=== PATIENT | male | born 1950 | race Caucasian/White ===

== ENCOUNTER → 2017-10-19 10:51 | Outpatient (CLI) | payer OTHER, SELFPAY ==
[2017-10-19 11:46] LABS: AST(SGOT) 19 U/L (15-37); Alanine Aminotransfer ALT/SGPT 19 U/L (16-61); Albumin, Serum 3.6 g/dL (3.2-5.0); Alkaline Phosphatase 58 U/L (45-117); Bilirubin, Direct 0.15 mg/dL (0.00-0.30); Cholesterol 126 mg/dL (200); Globulin 4.1 g/dL (2.2-4.2); High Density Lipoprotein 65 mg/dL; Protein, Total 7.7 g/dL (6.4-8.2); Triglycerides 42 mg/dL; Very Low Density Lipoprotein 8 mg/dL (5-40)
== END ==
PROVIDERS: Family Provider Family Medicine; PCP Family Medicine; Visit Provider Internal Medicine Cardiovascular Disease
DX: E78.5 Hyperlipidemia, unspecified (principal); Z79.899 Other long term (current) drug therapy
CPT/HCPCS: 36415; 80061; 80076

== ENCOUNTER 2018-01-25 07:03 | Day surgery (SDC) | payer OTHER, SELFPAY ==
[2018-01-25 07:20] VITALS: BP 133/80; PULSE 61; RESP 18; TEMP 36.6; O2SAT 97; BMI 31.0
[2018-01-25 08:30] VITALS: BP 103/77; BP 133/80; BP 83/41; PULSE 70; RESP 14; RESP 16; TEMP 36.6; O2SAT 95; O2SAT 96
--- NOTE | 2018-01-25 08:31 | OP.ENDO_ITS ---
Patient Name: Kalen Parham Procedure Date: 01/25/2018 7:55 AM Date of : 1950 Age: 67 Procedure: Colonoscopy Indications: Rectal bleeding Providers: Son Parson MD Requesting Provider: Patrick Posadas MD Medicines: See the Anesthesia note for documentation of the administered medications Patient Profile: Last Colonoscopy: more than 6 years ago. Complications: No immediate complications. Procedure: Pre-Anesthesia Assessment: - Prior to the procedure, a History and Physical was performed, and patient medications and allergies were reviewed. The patient's tolerance of previous anesthesia was also reviewed. The risks and benefits of the procedure and the sedation options and risks were discussed with the patient. All questions were answered, and informed consent was obtained. Prior Anticoagulants: The patient has taken aspirin, last dose was 7 days prior to procedure. ASA Grade Assessment: III - A patient with severe systemic disease. After reviewing the risks and benefits, the patient was deemed in satisfactory condition to undergo the procedure. After I obtained informed consent, the scope was passed under direct vision. Throughout the procedure, the patient's blood pressure, pulse, and oxygen saturations were monitored continuously. The colonoscope was introduced through the anus and advanced to the cecum, identified by appendiceal orifice and ileocecal valve. The colonoscopy was performed without difficulty. The patient tolerated the procedure well. The quality of the bowel preparation was good. Scope In: 8:07:01 AM Scope Withdrawal Time 0 hours 6 minutes 6 seconds Scope Out: 8:25:50 AM Total Procedure Duration Time 0 hours 18 minutes 49 seconds Findings: Hemorrhoids were found on perianal exam. Non-bleeding non-thrombosed non-prolapsed external and internal hemorrhoids were found during retroflexion. The hemorrhoids were moderate, medium-sized and Grade II (internal hemorrhoids that prolapse but reduce spontaneously). The exam was otherwise without abnormality. Impression: - Hemorrhoids found on perianal exam. - Non-bleeding non-thrombosed non-prolapsed external and internal hemorrhoids. - The examination was otherwise normal. - No specimens collected. Recommendation: - Discharge patient to home. - Resume previous diet. - Continue present medications. - Repeat colonoscopy in 10 years for screening purposes. - Return to my office in 1 week. Procedure Code(s): --- Professional --- 26703, Colonoscopy, flexible; diagnostic, including collection of specimen(s) by brushing or washing, when performed (separate procedure) Diagnosis Code(s): --- Professional --- K64.1, Second degree hemorrhoids K62.5, Hemorrhage of anus and rectum CPT copyright 2017 [employer]. All rights reserved. The codes documented in this report are preliminary and upon tuyere fitter review may be revised to meet current compliance requirements. MD Son Inman MD 01/25/2018 8:31:20 AM This report has been signed electronically. Number of Addenda: 0 Note Initiated On: 01/25/2018 7:55 AM
[2018-01-25 08:35] VITALS: BP 104/81; BP 133/80; PULSE 68; RESP 16; O2SAT 96
[2018-01-25 08:40] VITALS: BP 107/81; BP 133/80; PULSE 62; RESP 16; TEMP 36.7; O2SAT 97
--- NOTE | 2018-01-25 08:40 | EKG12_ITS ---
Test Reason : Blood Pressure : / mmHG Vent. Rate : 069 BPM Atrial Rate : 069 BPM P-R Int : 144 ms QRS Dur : 142 ms QT Int : 470 ms P-R-T Axes : 066 013 025 degrees QTc Int : 503 ms Normal sinus rhythm Right bundle branch block Abnormal ECG When compared with ECG of 07-MAY-2017 16:07, No significant change was found Confirmed by UMBERTO SINGER, ILA ([id number]), editor index MARY VILLA ([id number]) on 01/30/2018 3:52:13 PM Referred By: Son Parson Confirmed By:ILA SHIPMAN MD
[2018-01-25 08:56] VITALS: BP 133/80
== END 2018-01-25 09:10 | disposition home or self-care (01) ==
LOC: EN 07:03 → AC 07:04
PROVIDERS: Family Provider Family Medicine; PCP Family Medicine; Referring Provider Surgery; Visit Provider Surgery
PROC: 0DJD8ZZ Inspection of Lower Intestinal Tract, Via Natural or Artificial Opening Endoscopic (ICD-10-PCS; CPT 45378; principal; 2018-01-25 07:55)
DX: K62.5 Hemorrhage of anus and rectum (principal); K40.90 Unilateral inguinal hernia, without obstruction or gangrene, not specified as recurrent; K64.1 Second degree hemorrhoids; K64.4 Residual hemorrhoidal skin tags; Q21.1 Atrial septal defect; I34.0 Nonrheumatic mitral (valve) insufficiency; I45.10 Unspecified right bundle-branch block; E78.5 Hyperlipidemia, unspecified; J45.909 Unspecified asthma, uncomplicated; M19.90 Unspecified osteoarthritis, unspecified site; I25.2 Old myocardial infarction; Z79.82 Long term (current) use of aspirin; Z79.899 Other long term (current) drug therapy; Z87.891 Personal history of nicotine dependence
CPT/HCPCS: 45378; 93005; J7120

== ENCOUNTER 2019-03-29 05:34 | Day surgery (SDC) | payer OTHER, SELFPAY ==
--- NOTE | 2019-03-01 03:17 | HP_ITS ---
Intake Vital Signs 03/01/19 Body Mass Index (BMI) 32.8 03/01/19 Height 5 ft 8 in 03/01/19 Weight: 200 lb 03/01/19 Body Mass Index (BMI) 30.4 03/01/19 Blood Pressure 142/88 H 03/01/19 Blood Pressure Location Rt brachial 03/01/19 Blood Pressure Position Sitting 03/01/19 Respiratory Rate 18 03/01/19 Pulse Rate 66 03/01/19 Pulse Source Monitor 03/01/19 Temperature 98.5 F 03/01/19 Temperature Source Oral 03/01/19 Pulse Ox 96 03/01/19 Oxygen Delivery Method room air Intake Visit Reasons: Update H/P Bilateral Inguinal Hernia DP Chief Complaint: [facility] Student Support Services Director Required: No Is patient in pain?: No Allergies Penicillins Allergy (Severe, Verified 03/01/19 09:04) throat swelling omeprazole Adverse Reaction (Intermediate, Uncoded 01/23/18 11:32) unknown Medications aspirin 81 mg tablet,delayed release 81 mg PO QDAY 03/29/17 [History Confirmed 03/01/19] sildenafil 25 mg tablet 25 mg PO ONCE 01/10/18 [History Confirmed 03/01/19] atorvastatin 20 mg tablet 20 mg PO QDAY #90 tab 11/30/18 [Rx Confirmed 03/01/19] PFS Medical History Encounter for long-term (current) use of other medications (Chronic) Hyperlipidemia (Chronic) Bradycardia (Chronic) Right bundle branch block (Chronic) Nonrheumatic mitral valve regurgitation (Chronic) Patent foramen ovale (Chronic) Old myocardial infarction (Chronic ~2014) Atherosclerotic heart disease of [place] coronary artery without angina pectoris (Chronic) Hemorrhoid (Acute) Surgical History History of back surgery (Acute) History of bilateral carpal tunnel release (Acute) History of colonoscopy (Acute ~2017) History of ear surgery (Acute) History of left heart catheterization (LHC) (Chronic ~2014) Family History Father Colon cancer Mother Colon cancer CVA (cerebral vascular accident) Heart disease Social History (Updated 03/01/19 @ 15:17 by Jaci Sam, PA-C) Smoking Status: Former smoker how long ago did patient quit smokin HPI HPI HPI: AIXA LOPEZ is a 68 M who presents to the office today for HPI HPI Surgical H&P: Yes HPI: AIXA LOPEZ is a 68 M who presents to the office today for an update history and physical for bilateral inguinal hernias. Patient denies recent hospitalizations or illnesses. He has had previous myocardial infarction approximately 4 years ago. Patient is on aspirin. Dr. Vogt is his insurance risk manager. Patient denies previous stroke and blood clots. Patient does note that his heart rate slows down during each time he has had anesthesia. Patient denies nausea, vomiting. He denies change in bowel habits. Patient's previous history per Dr. Parson: AIXA LOPEZ is a 68 M who presents to the office today for Reevaluation for hernias. I last saw this patient back in 01/10/2018 this was for colonoscopy that I had done and he had a bulge in his left groin but he was not having any discomfort.He was supposed to come back so that we can get him scheduled for the laparoscopic left inguinal hernia but he forgot and was lost in follow-up but re-presents today after being seen by his primary care physician who now is identified that he has bilateral inguinal hernias. Once again the patient is not noticing any discomfort he has no change in his bowel or bladder habits. ROS General General: No weight change, appetite, fatigue, colon cancer, breast cancer or weakness HEENT HEENT: No difficulty swallowing, eye injury, eye surgery, swollen glands or hoarseness Endo Endocrine: No thyroid disease, diabetes mellitus, thyroid cancer, Hair loss, heat intolerance or cold intolerance Musc Musculoskeletal: Yes back problems and arthritis; no rheumatoid arthritis, gout or joint pain Cardio Cardiovascular: Yes heart attack; no murmur, pacemaker, heart disease, atrial fibrillation, high blood pressure, heart stent, palpitations, shortness of breat with exertion or chest pain Resp Respiratory: No shortness of breath, No sleep apnea, No cough, No COPD, No asthma, No emphysema, No wheezing Gastro Gastrointestinal: No abdominal pain, No nausea or vomiting, No diarrhea, No constipation, No blood in stool, No acid reflux, Yes hemorrhoids, No ulcers, No gallbladder problem, No black,tarry stools Neuro Neurologic: No weakness Exam Const General: cooperative, healthy appearing, comfortable, no acute distress HENME Head: normal to inspection Eyes General: appearance normal, both eyes and all related structures Neck Neck: normal visual inspection Neck mass: No Resp Effort & Inspection: normal respiratory effort Auscultation: clear to auscultation bilaterally Cardio Rate: regular rate Rhythm: regular rhythm Heart Sounds: no murmurs GI Inspection: normal to inspection Palpation: soft, hernia (bilateral inguinal) Auscultation: normal bowel sounds Skin General: no rashes or lesions noted Neuro General: no focal motor deficits, CN's II-XI intact bilaterally Extrem General: normal to inspection Psych Appearance: grossly normal Affect: normal affect Assessment & Plan Problems 1. Non-recurrent bilateral inguinal hernia without obstruction or gangrene K40.[address] Parson will plan to perform a laparoscopic robotic assisted bilateral inguinal hernia repair with mesh. Procedure details, risks and benefits have been reviewed. Patient has had the opportunity to ask and have questions answered. Patient verbally understands and agrees with plan. Patient will hold his aspirin 7 days prior to the procedure. Coding Level of Care Code No Charge Diagnoses Non-recurrent bilateral inguinal hernia without obstruction or gangrene K40.20 ??Obstruction and gangrene presence: without obstruction or gangrene ??Recurrence: non-recurrent Comment Update H&P 03/01/19 [id number] <Electronically signed by Jaci tierney PA-C> Date _ Jaci Sam PA-C I have re-examined the patient. There are no clinical changes since date of exam.
[2019-03-01 09:05] VITALS: BMI 32.8
[2019-03-29] VITALS (7 sets, daily range): BP systolic 122–133; BP diastolic 76–84; PULSE 50–66; RESP 16; TEMP 36–36.7; O2SAT 92–95; BMI 32.2
--- NOTE | 2019-03-29 05:46 | EKG12_ITS ---
Test Reason : PRE-OP Blood Pressure : / mmHG Vent. Rate : 062 BPM Atrial Rate : 062 BPM P-R Int : 144 ms QRS Dur : 140 ms QT Int : 456 ms P-R-T Axes : 055 015 024 degrees QTc Int : 462 ms Normal sinus rhythm Right bundle branch block Abnormal ECG When compared with ECG of 25-JAN-2018 08:37, No significant change was found Confirmed by DARRIUS SINGER, ANNETTE ([id number]), non linear editor MARY VILLA ([id number]) on 04/01/2019 10:36:31 AM Referred By: Son Parson Confirmed By:JOZEF RIZO MD
[2019-03-29] MEDS: Lactated Ringers 1,000 ML 100 ML IV ×3 (06:41→10:55)
--- NOTE | 2019-03-29 07:42 | DCINST_ITS ---
Discharge Diet: Light diet - advance as tolerated Discharge Activity: Return to Normal Activity, May Drive - when you are no longer taking narcotic pain medications., May Shower - with the bandage in place 1-2 days after surgery. Lifting Restrictions: 20 pounds for 8 weeks. Additional Activity Instructions:: Climbing stairs is fine, walking is encouraged. Sitting in bed may be uncomfortable. Sitting up using your lateral muscles (sitting up sideways) is usually more comfortable. Do not drive, work heavy equipment of sign legal documents for 24 hours. If your hernia repair was an ingunial repair, you may have scrotal swelling, an ice pack and/or athletic support can provide more comfort. Pain medications may cause nausea, you should typically eat light foods as you take your pain medications. Pain medications may also cause constipation. If you have difficulty with this, discuss with your doctor. Call your doctor if your incision/area has: Continuous Slow Oozing, Sudden Increased Bleeding, Increased Pain/ Swelling, Increased Redness, Foul Smelling Discharge Call your doctor if you observe: Fever of 101 or Higher Suture Line Care: Avoid Pulling/Pushing, Avoid Pinching/Bending Additional Dressing/Incision Instructions:: Leave the operative bandage on for 2-3 days. When you remove the bandage, leave the steri-strips on place until your follow up appointment or they fall off. Allergies/Adverse Reactions: Allergies Penicillins Allergy (Severe, Verified 03/14/19 14:42) throat swelling Medications to take at Discharge aspirin 81 mg tablet,delayed release 81 mg PO QDAY 03/29/17 atorvastatin 20 mg tablet 20 mg PO QDAY #90 tab 11/30/18 Oxycodone HCl/Acetaminophen [Percocet 5/325] 1 - 2 tablet PO Q4H PRN PRN 7 Days #30 tablet 03/29/19 The following prescriptions were given: Oxycodone HCl/Acetaminophen [Percocet 5/325] 1 - 2 tablet PO Q4H PRN PRN 7 Days #30 tablet PRN Reason: Pain Transmission Status: Sent to [facility] Primary Care Physician: Barry Posadas MD [Primary Care Provider] - Test Results: Test results from this visit will be discussed in further detail at your follow- up appointment, if applicable. Please Follow Up With: Son Parson MD - [phone] When: Plan to have a follow up appointment in 7 days. Call to schedule.
--- NOTE | 2019-03-29 07:42 | PCM.OPRPT ---
Problem List (1) Bilateral inguinal hernia Status: Acute Qualifiers: Obstruction and gangrene presence: without obstruction or gangrene Recurrence: non-recurrent Qualified Code(s): K40.20 - Bilateral inguinal hernia, without obstruction or gangrene, not specified as recurrent Report of Operation Date of Procedure: 03/29/19 Pre-Operative Diagnosis: Bilateral inguinal hernia Post-Operative Diagnosis: Same Surgery/Procedure Performed:: Laparoscopic bilateral inguinal hernia repair Type of Anesthesia:: General Anesthesiologist: Neel Rousseau Estimated Blood Loss (mL): < 25 cc Fluids Replaced: 1500 cc lr Description of Procedure: Patient was brought into the operating room. Placed in the supine position. Under excellent general trach intubation abdomen was sterilely prepped draped in usual fashion. Local was injected above the umbilicus incision was made dissection was carried down to the fascia the fascia grasped with Rina varies needle was placed inside the abdomen the abdomen was insufflated to 15 torr a 10/12 trocar was placed without difficulty it was flank by 2 #8 trochars placed under direct visualization. Patient was placed in the headdown position. The robot was brought in and docked appropriately. I started on the left side scoring the peritoneum dissecting down to Jacob's ligament dissecting laterally bringing back a indirect inguinal hernia dissecting the cord and vessel structures free. I then went to the right side in similar fashion scored the peritoneum dissected down to Jacob's ligament dissected laterally dissecting the cord and vessel structures free this time bringing a an indirect inguinal hernia in to the peritoneum. I fashioned a large 3D max mesh into the right side I tacked it to Jacob's ligament with a 2-0 Vicryl in similar fashion I placed a medium 3D max mesh on the left side and tacked it to Jacob's ligament with a 2-0 Vicryl. The mesh laid completely flat and looked excellent on both sides. We closed the peritoneum on the left and the right with a 3 OV lock suture burying the V lock into the ligaments fat. Robot was undocked to use a GraNee needle to close the umbilical port with 0 Vicryl. Local was injected skin incisions were closed with some particular stitches of 4-0 Monocryl. Steri-Strips were applied sterile dressings were applied and the patient tolerated the procedure well. - Admit VTE Documentation VTE Present on Admission: No VTE Mechan Device Prophylaxis: SCD's VTE Pharm Prophylaxis ordered?: No Reason prophylaxis not ordered:: Treatment Not Indicated
[2019-03-29] MEDS: Bupivacaine Mpf 0.5% 30 ML VIAL (09:17)
== END 2019-03-29 11:31 | disposition home or self-care (01) ==
LOC: SDC 05:36 → AC 05:36
PROVIDERS: Family Provider Family Medicine; PCP Family Medicine; Referring Provider Surgery; Visit Provider Surgery
PROC: (CPT 49650; principal; 2019-03-29 06:55)
DX: K40.20 Bilateral inguinal hernia, without obstruction or gangrene, not specified as recurrent (principal); I25.10 Atherosclerotic heart disease of native coronary artery without angina pectoris; I34.0 Nonrheumatic mitral (valve) insufficiency; I45.10 Unspecified right bundle-branch block; E78.5 Hyperlipidemia, unspecified; M19.90 Unspecified osteoarthritis, unspecified site; K21.9 Gastro-esophageal reflux disease without esophagitis; Z79.82 Long term (current) use of aspirin; Z79.899 Other long term (current) drug therapy; I25.2 Old myocardial infarction; Z88.0 Allergy status to penicillin; Z87.891 Personal history of nicotine dependence
CPT/HCPCS: 00840; 49650; S2900; 93005; J7120; C1781; J2405

== ENCOUNTER 2020-04-07 18:59 | Emergency (ER) | payer MEDICARE, OTHER, SELFPAY ==
[2019-04-03 07:13] VITALS: BMI 32.8
[2020-04-07 19:00] VITALS: BP 137/87; PULSE 57; RESP 16; TEMP 36.4; O2SAT 97; BMI 31.1
--- NOTE | 2020-04-07 19:07 | ED.RN ---
CALLED FOR EKG PER RN REQUEST, PULLED OLD EKGS FOR
--- NOTE | 2020-04-07 19:15 | EKG12_ITS ---
Test Reason : DIZZINES/SOB Blood Pressure : / mmHG Vent. Rate : 058 BPM Atrial Rate : 058 BPM P-R Int : 150 ms QRS Dur : 142 ms QT Int : 486 ms P-R-T Axes : 062 022 031 degrees QTc Int : 477 ms Sinus bradycardia Right bundle branch block Abnormal ECG Confirmed by DARRIUS SINGER, ANNETTE ([id number]), video tape editor MARY VILLA ([id number]) on 04/17/2020 12:33:37 PM Referred By: Barry Posadas Confirmed By:JOZEF RIZO MD
--- NOTE | 2020-04-07 19:29 | ED.VIS.GEN ---
History of Present Illness Chief Complaint: Dizziness Narrative: 70-year-old male presenting for evaluation of an episode of dizziness earlier today. He states that he has been dizzy like this in the past but does not have a formal diagnosis. He states he spoke with his who has vertigo and states that likely vertigo. This episode is resolved. Is not currently present. Patient also states that he has been short of breath at night and coughing with congestion and wheezing at night. This has been going on for 6 weeks. He is not had fever, chills. He does not have loss of taste or smell. He does not feel sick. Patient denies any sick contacts that he knows of. - Past Medical History (1) Hyperlipidemia Status: Chronic (2) History of non-ST elevation myocardial infarction (NSTEMI) Status: Resolved Past Medical History - Allergies and Home Meds Allergies/Adverse Reactions: Allergies Penicillins Allergy (Severe, Verified 04/07/20 19:03) throat swelling Primary Care Physician: Barry Posadas MD [Primary Care Provider] - Prior records reviewed: Yes Past Medical History: - - Reviewed in problem list Surgical History: noncontributory Lives: Spouse/ Significant Other Smoking Status: Former smoker Alcohol: None Drugs: None Review of Systems General: Denies: Chills, Fever, Sweats Eyes: Denies: Visual changes - bilaterally, Diplopia ENT: Denies: Rhinorrhea, Sore throat Cardiovascular: Denies: Chest pain, Palpitations Respiratory: Reports: Dyspnea, Cough. Denies: Dyspnea on exertion Gastrointestinal: Reports: Nausea, Vomiting. Denies: Abdominal pain, Diarrhea, Melena, Hematochezia Genitourinary: Denies: Dysuria, Hematuria, Frequency Musculoskeletal: Denies: Back pain, Extremity Pain Skin: Denies: Rash, Wounds Neurological: Reports: - - Vertiginous dizziness Psych: Denies: Depression, Anxiety Endocrine: Denies: Polyuria, Polydipsia Physical Exam Vital Signs/Narrative: Vital Signs Temp Pulse Resp BP Pulse Ox 04/07/20 19:00 97.6 F L 57 L 16 137/87 H 97 Inital Vital Signs reviewed: Yes General: Well nourished, No Acute Distress Head: Normocephalic, Atraumatic Eyes: Perrl, EOMI, - - No dizziness elicited on exam. No nystagmus. ENT: Moist mucous membranes, No rhinorrhea Neck: Supple, Nontender Cardiovascular: Regular rate, Regular rhythm Respiratory: No distress, CTA bilaterally Extremities: Nontender, No edema Skin: Normal color, No rash Neurological: Alert, Oriented x3 Psychological: Normal affect, Normal Mood Diagnostic/Tx/Re-eval Clinical Impression(s) from Imaging Studies Chest X-Ray 04/07/20 19:40 IMPRESSION: No definite acute or significant abnormality seen. Electronically Signed: Alfred Salinas MD at 20:09 EST , Service support , - Medical Decision Making 70-year-old male presenting with a cough which has had for 6 weeks without change. He states it is worse at night. He is not had fever, chills, myalgias, change in taste or smell. He states he has no exposure to Covid?19. Patient also states that he became dizzy today and it was vertiginous and was only for short time and he became nauseous and vomited. This is completely resolved. I cannot reproduce it on exam. He has no dizziness currently. His vital signs are stable and he is afebrile. He is not hypoxic, tachypneic. He is not having chest pain. I did check a chest x-ray which was negative for acute process as read by myself and the radiologist. I feel he is stable for discharge home and he does not need lab work or further imaging or treatment. I will give him meclizine for home. He is given return precautions. Impression: 1. Dizziness 2. Cough ED Disposition - Plan for ED Patient: Disposition: Home or Assisted Living Instructions: ED Cough Chronic Uncertain Cause Adult, ED Vertigo, Unspecified Prescriptions: Meclizine HCl 25 mg PO TID PRN PRN #30 tab.chew PRN Reason: Dizziness Transmission Status: Received by [facility] Referrals: Barry Posadas MD [Primary Care Provider] -
--- NOTE | 2020-04-07 19:40 | RAD_ITS ---
STUDY: X-RAY CHEST REASON FOR EXAM: Male, 70 years old. WHEEZING X SEVERAL WEEKS. STATES TODAY AROUND NOON HE BECAME DIZZY. STATES HE VOMITED ONCE SINCE THEN. TECHNIQUE: Single AP portable view of the chest. COMPARISON: 05/07/2017. FINDINGS: The lungs are clear and expanded. There is no demonstrated pleural abnormality. Normal size heart. Normal mediastinum and efrain. Normal visualized pulmonary arteries. Normal visualized aortic arch and descending thoracic aorta. There are diffuse degenerative changes of the visualized thoracic spine. Normal visualized ribs, clavicles, and shoulders. There is no demonstrated abnormality of the visualized soft tissue structures of the upper abdomen. RAD/Chest 1 View (Portable) IMPRESSION: No definite acute or significant abnormality seen. Electronically Signed: Alfred Salinas MD at 20:09 EST , Service support ,
[2020-04-07 20:43] VITALS: BP 128/81; PULSE 58; RESP 14; O2SAT 98
== END 2020-04-07 20:45 | disposition home or self-care (01) ==
PROVIDERS: Emergency Provider Student in an Organized Health Care Education/Training Program; PCP Family Medicine
DX: R42 Dizziness and giddiness (principal); R05 Cough; R06.2 Wheezing; R06.02 Shortness of breath; E78.5 Hyperlipidemia, unspecified; Z79.82 Long term (current) use of aspirin; Z79.899 Other long term (current) drug therapy; I25.2 Old myocardial infarction; Z87.891 Personal history of nicotine dependence
CPT/HCPCS: 71045; 93005; 99283

== ENCOUNTER → 2020-04-15 09:37 | Outpatient (CLI) | payer MEDICARE, OTHER, SELFPAY ==
[2020-04-07 19:00] VITALS: BMI 31.1
[2020-04-15 12:38] LABS: Vitamin B12 370 pg/mL (211-911); Vitamin D,25 Hydroxy 21.7 ng/mL
[2020-04-15 12:42] LABS: AST(SGOT) 13 U/L (15-37); Alanine Aminotransfer ALT/SGPT 26 U/L (16-61); Albumin, Serum 3.7 g/dL (3.2-5.0); Alkaline Phosphatase 66 U/L (45-117); Anion Gap 3 (5-15); BUN 14 mg/dL (7-18); BUN/Creat Ratio 15.2 RATIO (10-20); Calcium,Total 8.7 mg/dL (8.5-10.1); Chloride 108 mmol/L (98-107); Cholesterol 138 mg/dL (200); Creatinine, Serum 0.92 mg/dL (0.70-1.30); EST Glomerular Filtration Rate 87 mL/min (>60); Est Glom Filt Rate - Afr Amer 105 mL/min (>60); Globulin 3.7 g/dL (2.2-4.2); Glucose 83 mg/dL (74-106); High Density Lipoprotein 66 mg/dL; PSA,Total - Annual Screen 3.05 ng/mL (0.00-4.00); Protein, Total 7.4 g/dL (6.4-8.2); Sodium Level 140 mmol/L (136-145); Triglycerides 56 mg/dL; Very Low Density Lipoprotein 11 mg/dL (5-40)
== END ==
PROVIDERS: PCP Family Medicine; Referring Provider Family Medicine; Visit Provider Family Medicine
DX: I25.10 Atherosclerotic heart disease of native coronary artery without angina pectoris (principal); R53.83 Other fatigue; E55.9 Vitamin D deficiency, unspecified; Z12.5 Encounter for screening for malignant neoplasm of prostate
CPT/HCPCS: 36415; 80053; 80061; 82306; 82607; 84153; 84403; G0103

== ENCOUNTER 2020-06-11 15:23 | Observation (INO) | payer MEDICARE, OTHER, SELFPAY ==
--- NOTE | 2020-05-26 12:54 | HP.PCM_ITS ---
History and Physical History and Physical [facility] Patient Name: Kalen Parham : 1950 From: SHAKEEL GILMAN PA-C DATE OF SURGERY: 06/11/2020 SCHEDULED PROCEDURE: right total hip arthroplasty HISTORY OF PRESENT ILLNESS: Preoperative history and physical exam was performed on May 26, 2020. This is a 70-year-old male who has had ongoing pain for over 6 years with his right hip. Patient does report having scheduled for the same surgery [address] Chad Cheema but canceled this as he felt he was not ready for the surgery. Patient complains of pain with his right hip that can reach 7/10 with activities. Pain is been intermittent and aching. Pain is increased with walking and standing. He does have start up pain. Pain is located over the lateral hip, anterior thigh and right buttock. Patient has difficulty with putting on his socks and shoes and states he is no longer able to get his leg over the motorcycle to right. He has seen the pain gets progressively worse. He denies previous surgery on the right hip. He has tried home exercises, ice, heat minimal relief. After failing conservative measures and discussing patricia tment options with Dr. Zane Steele, the patient does wish to proceed with a right total hip arthroplasty. He does have medical history pertinent for previous heart attack in 2018 are 2019 as well as a heart catheterization. We are obtaining surgical clearance from the general repairer Dr. Vogt and primary care physician Dr. Giraldo. Patient does report 3 weeks ago going to the emergency room due to wheezing as they thought he was having another heart attack. This was ruled out and patient was treated by the primary care physician with an inhaler for his wheezing. He states this was very helpful. Currently denies any chest pain or shortness of breath. REVIEW OF SYSTEMS: ROS: Const: Denies anorexia, change in appetite, fever, hard of hearing, vision problems and weight change. CV: Denies chest pain, heart murmur, irregular heartbeat and peripheral vascular disease. Resp: Denies asthma, cough, pneumonia, sleep apnea, SOB, tuberculosis and wheezing. GI: Denies constipation, diarrhea, difficulty swallowing, heartburn, nausea, bloody stools and vomiting. : Urinary: denies incontinence. Musculo: Denies leg swelling, limp, trouble walking and weakness. Skin: Denies Raynaud's, history of shingles and tattoo. Neuro: Reports numbness/tingling but denies ambulatory dysfunction, dizziness and tremor. Psych: Denies anxiety, depression, insomnia, mental illness and stress. Jeremias/Lymph: Denies anemia, bleeding/bruising tendency and past transfusion. Reviewed, no changes. PAST MEDICAL HISTORY: Advance Care Plan: No Advance Directives Effective Date: 05/22/2020 PMH: Medical Problems: Heart Attack, Arthritis, Hypercholesterolemia Accidents: Fracture - 6 BROKEN FINGERS TWO FROM FARMING OTHER SPORTS AND PLAY A CHILD Sports Related Injury - CRACKED RIBS A TEEN Broken Back - A CHILD Surgical Hx: RT CTR - (03/16/2011) [email or web address] Laminectomy - (07/05/2013) [email or web address] LT CTR - (06/19/2015) VÍCTOR @ [facility] Back Surgery - (2013) Hernia Repair - (2018) DOUBLE Anesthesia Complications: Anesthesia Complications - HEART RATE SLOWS DOWN Assistive Devices: Glasses Reviewed and updated. SOCIAL HISTORY: SH: Marital: .Occupation: [employer].Work Status: Currently Working.Hand Dominance: Right-handed. Personal Habits: Tobacco Use: Patient is a former smoker.Cigarette Use: Former.Alcohol: Occasionally.Drug Use: Denies Use.Enjoy Exercising: Daily. Reviewed, no changes. VITALS: Ht: 68 Wt: 222lb Wt k.699 BMI: 33.8 BP: 138/76 Pulse: 76 Resp: 14 T: 96.4 T: 35.8C Pain Level: 1 ALLERGIES: Penicillin - Swellling MEDICATIONS: Atorvastatin Calcium 20 mg 1 po qd, Dulera 100-5 mcg/Act 2 puffs by mouth once daily, Vitamin D (Cholecalciferol) 50 mcg (1999 Ut) 1 po qd, Aspirin 81 81 mg 1 pill 2x/day by mouth PRE-OP EXAM: General appearance:NORMAL Other: Eyes: Conjunctivae and lids: NORMAL Pupils: ERR Ears, Nose, Mouth, and Throat: NORMAL Other: Inspection of lips, teeth and gums: NORMAL Other: Neck: Examination of neck: no masses noted. Respiratory: Assessment of respiratory effort: NORMAL Other: Auscultation of lungs: clear to auscultation no wheezes, rhonchi or rales. Cardiovascular: Auscultation of heart: regular rate and rhythm, no murmurs, gallops or rubs. Exam of carotid arteries: NORMAL Other: Gastrointestinal: Exam of abdomen: soft, nontender, nondistended bowel sounds present. PHYSICAL EXAMINATION: Patient does walks an antalgic gait. Right hip is cool to touch. No tenderness over the greater trochanteric region. Range of motion: Right hip flexion 80, internal rotation to neutral, external rotation 20. Sensation intact to light touch. Neurovascularly intact. IMAGING STUDIES: Previous x-rays of the right hip reveal joint space narrowing with subchondral sclerosis, osteophyte formation, subchondral cyst formation consistent with severe stage IV right hip osteoarthritis IMPRESSION: 1. Severe right hip osteoarthritis 2. History of heart catheterization and heart attack 3 years ago 3. Hypercholesterolemia PLAN: Dr. Zane Steele did discuss and review with the patient all treatment options including surgical versus nonsurgical options. Patient does wish to proceed with the above-stated procedure. Potential risks, benefits, and complications of the procedure were discussed in detail including but not limited to , infection, nerve and blood vessel damage, persistent pain, numbness, tingling, paresthesias, blood clot, pulmonary embolism, and requirement for possible further surgery. The patient expressed full understanding and has no further questions for the doctor. Patient does agree to proceed with the above-stated procedure and has signed the surgery consent form. We discussed the current risks associated with COVID 19. This does include the risk of exposure while in the hospital. Patient was reassured local hospitals have low infection rates and are taking all necessary precautions to avoid exposure to patients. In addition, we discussed strategies that can be used to help limit exposure including those that limit the patient's time in the hospital. Also using strategies to limit the patient's need for continued inpatient services after being discharged from the hospital. Patient was notified that we will need to comply with any screening or testing the hospital wishes to perform or that surgery may be delayed for any positive results. This dictation was created using voice recognition software. Phonetic and/or grammatical errors may exist. ___ I have re-examined the patient. There are no clinical changes since date of exam. ___ See progress notes for changes. ___ Dictated on admission Date: Time: Signature:
[2020-05-29 10:39] LABS: Absolute Lymphocyte Count 1.72 X10^3/uL (0.83-4.51); Absolute Neutrophil Count 3.3 X10^3/uL (2.0-7.7); Basophil# 0.08 X10^3/uL; Basophil% 1.3 % (0-1); Eosinophil# 0.38 X10^3/uL; Eosinophils% 6.2 % (0-5); Hematocrit 45.9 % (40-54); Hemoglobin 15.7 g/dL (13.0-16.5); Lymphocyte # 1.72 X10^3/ul (4.0); Mean Corp Hgb Conc 34.2 g/dL (32-36); Mean Corpuscular Hgb 31.2 pg (27.0-32.0); Mean Corpuscular Volume 91.1 fL (80-94); Mean Platelet Vol. 10.2 fl (6.2-12.0); Monocyte# 0.65 X10^3/uL; Monocyte% 10.6 % (0-10); NRBC Flagged by Analyzer 0 % (0-5); Neutrophil # 3.29 X10^3/uL (2.7-7.7); Neutrophil % 53.6 % (47-70); Platelet Count 266 K/mm3 (150-450); RBC Distribution Width CV 13.2 % (11.6-14.6); Red Blood Count 5.04 M/mm3 (4.6-6.2); White Blood Count 6.1 K/mm3 (4.4-11.0)
[2020-05-29 11:10] LABS: Anion Gap 5 (5-15); BUN 20 mg/dL (7-18); Chloride 110 mmol/L (98-107); Creatinine, Serum 0.95 mg/dL (0.70-1.30); EST Glomerular Filtration Rate 83 mL/min (>60); Est Glom Filt Rate - Afr Amer 101 mL/min (>60); Glucose 85 mg/dL (74-106); Potassium 4.4 mmol/L (3.5-5.1); Sodium Level 140 mmol/L (136-145)
[2020-05-30 07:00] VITALS: BMI 34.0
[2020-05-30 14:00] LABS: Magnesium 2.4 mg/dL (1.6-2.6)
[2020-06-11] VITALS (14 sets, daily range): BP systolic 106–127; BP diastolic 64–91; PULSE 53–84; RESP 16–18; TEMP 35.7–36.8; O2SAT 93–100; BMI 34.2
[2020-06-11] MEDS: Gabapentin 600 MG Tablet PO (08:34)
[2020-06-11] MEDS: Acetaminophen 500 MG Tablet 1000 MG PO ×2 (08:34→18:31)
[2020-06-11] MEDS: Lactated Ringers 1,000 ML 999 ML IV ×2 (08:34→12:37)
[2020-06-11 08:45] LABS: Bedside Glucose 93 mg/dL (70-110)
[2020-06-11] MEDS: Lactated Ringers 1,000 ML 75 ML IV (08:53)
[2020-06-11] MEDS: Lactated Ringers 1,000 ML 125 ML IV (09:50)
--- NOTE | 2020-06-11 11:20 | RAD_ITS ---
STUDY: X-RAY - PELVIS AND RIGHT HIP REASON FOR EXAM: Male, 70 years old. Intra-operative right hip TECHNIQUE: 1 views of the pelvis and hip. COMPARISON: None. FINDINGS: Intraoperative imaging provided for right total hip replacement. RAD/Hip 1 view with Pelvis IMPRESSION: Intraoperative imaging provided for right total hip replacement. Electronically Signed: Andi Gaitan MD at 15:45 EST , Service support ,
--- NOTE | 2020-06-11 11:44 | PCM.OPRPT ---
Report of Operation Date of Procedure: 06/11/20 Pre-Operative Diagnosis: Right hip primary osteoarthritis Post-Operative Diagnosis: Right hip primary osteoarthritis Surgery/Procedure Performed:: Right direct anterior total hip replacement, minimally invasive Description of Surgical Findings:: Stable hip with equal leg lengths tunnel form placing supervisor: KRISHNA - Mallika Khoury Type of Anesthesia:: Spinal Anesthesiologist: Neel Rousseau Special Medications: Vancomycin and clindamycin, 1 g TXA at incision, 1 g TXA closure, 10 mg Decadron, joint cocktail (5 mg Duramorph, 30 mL of 0.5% Ropivicaine, 1000 units of epinephrine, 30 mg of Toradol) Specimen's removed: Bony cuts Estimated Blood Loss (mL): 200 Fluids Replaced: 1000 mL crystalloid Description of Procedure: Components used: 1. Accolade 2 [place] femoral stem size 5 127? 2. Alfredito trident 2 acetabular shell size 56 mm 3. Alfred[place] X3 polyethylene F 4. [place] Biolox delta 36mm, -5mm femoral head Brief history operative indications: 70 yo M who failed conservative measures for their hip osteoarthritis. X-rays were consistent with osteoarthritis including joint space narrowing, osteophyte formation and subchondral cysts. Total hip replacement was discussed with the patient with risks and benefits including but not limited to blood loss, DVTs, PEs, neurovascular damage, dislocation, general risks of anesthesia including loss of life. Patient demonstrated an understanding medical clearance is obtained the patient was consented for surgery. Procedure: On the date of procedure the patient's R hip was marked in the preoperative area. Patient was then taken back to the operating room where anesthesia assumed control of the C-spine and airway and administered anesthetic. Patient was transferred to the operating table and placed in the supine position. The hips were placed at the break of the bed and a sacral bump was placed. The R lower extremity was then prepped out in a sterile fashion using chlorhexidine while the surgeon scrubbed. The PA was vital in the positioning of the patient. Upon reentering the room the R lower extremity was draped in the standard orthopedic fashion and the incision was marked. A timeout was called and everyone agreed upon the side, the site, the procedure be performed, antibody given, and patient's identity. At this time incision was made through skin, subcutaneous tissue, and fat down to fascia. The fascia was then incised and the TFL was retracted laterally. A retractor was placed on the lateral border of the femoral neck. Attention was directed to the inferior portion of the approach and all crossing vessels were identified and appropriately coagulated. A retractor was then placed on the medial portion of the femoral neck. The anterior capsule was then cleared of all soft tissue and then H shaped capsulotomy was made. The retractors were then placed inside the capsule. The femoral neck was identified and a cleanup cut was made. At this time a power corkscrew was used to remove the femoral head. Attention was then turned toward the acetabulum where the soft tissues were appropriately retracted and the acetabulum was sequentially reamed to 56 mm. A 56 mm cup was then selected and impacted into place. Acetabular liner was impacted into place and locking mechanism was verified. The position of the acetabular cup was then verified under live fluoroscopy. Attention was then turned to the femur. Soft tissue releases on the medial and lateral femoral neck were appropriately done, the leg was externally rotated and lateralized. A Swain retractor was placed medially and proximally to the greater trochanter this allowed appropriate visualization and exposure of the femoral canal. Rongeour was then used to remove excess lateral bone. A canal finder and entry broach were used to open the proximal canal. Once we verified we were down the femoral canal we subsequently broached up to a size 5 femur. The appropriate neck was placed in the previously selected head was trialed with a -5 mm neck. Traction was pulled and the hip was reduced with internal rotation. Once it was appropriately reduced and stability was checked. There was minimal shuck, equal leg lengths and appropriate stability with hyperextension and external rotation as well as with 90? flexion and internal rotation. Fluoroscopy was then also used to verify the position of the components and leg lengths using the contralateral side for comparison. The trial components were then dislocated the proximal femur was again exposed and the components were removed from the wound. The final components were verified and opened. The wound was copiously irrigated out with normal saline. The acetabulum was checked for any residual debris. The final components were placed and impacted. Traction and internal rotation were again used to reduce the hip. After adequate reduction the hip remained stable with appropriate leg lengths. The final components were once again checked with live fluoroscopy and were found to be satisfactory. The wound was then copiously irrigated with normal saline once more, and hemostasis was obtained. Closure was then done using #1 Vicryl runner to close the fascia. A 2-0 vicryl interuppted sutures were used to close the subcutaneous skin. A 3-0 Monocryl and Steri-Strips were used for final skin closure. A Silverlon dressing was placed. Patient was awakened by anesthesia and transferred to the [facility]. Patient was then transferred to the PACU for recovery. Postoperative plan: Patient will get 24 hours postop antibiotics. Patient will get in-house physical therapy and will be weight-bear as tolerated. Patient will follow up in office in 2 weeks for a wound check and x-rays. Aspirin 81 mg twice daily. - Complications No intraoperative complications - Admit VTE Documentation VTE Present on Admission: No VTE Mechan Device Prophylaxis: SCD's, Thigh High MARIE Hose VTE Pharm Prophylaxis ordered?: Yes
--- NOTE | 2020-06-11 17:05 | RAD_ITS ---
STUDY: X-RAY - PELVIS AND RIGHT HIP REASON FOR EXAM: Male, 70 years old. Postop. TECHNIQUE: 2 views of the pelvis and hip. COMPARISON: None. FINDINGS: There is a non-specific bowel gas pattern. Normal visualized soft tissue structures. Normal bilateral iliac wings, sacroiliac joints and visualized sacrum. Normal bilateral superior and inferior pubic rami. Normal pubic symphysis. Normal bilateral ischial tuberosities. There are degenerative changes of the left hip. Right total hip arthroplasty. The prosthetic components are intact and articulate normally with each other. No fracture or loosening from the underlying bone. RAD/Hip Min 2 Views (Portable) IMPRESSION: Status post right hip replacement. Electronically Signed: Ravi Ulrich DO at 19:31 EST Tel [phone], Service support ,
--- NOTE | 2020-06-11 17:22 | PCM.PROGNOTE ---
<Ewa Ortiz PAINT MIXER MACHINE - Last Filed: 06/11/20 17:29> Subjective: Patient seen and examined. Underwent right total hip replacement by Dr. Steele. Denies current symptoms or complaints. Pain well controlled. - Physical Exam Vitals/I&O's: Vital Signs Temp Pulse Resp BP Pulse Ox 97.5 F L 63 18 121/91 H 93 06/11/20 16:12 06/11/20 16:12 06/11/20 16:12 06/11/20 16:12 06/11/20 16:12 Oxygen Flow Rate (L/min) 6 Oxygen Delivery Method Room Air Weight: 225 lb 1.471 oz Body Mass Index (BMI) 34.2 Intake and Output for Last 24 Hours 06/09/20 06/10/20 06/11/20 23:59 23:59 23:59 Intake Total 4862 / 4862 Balance 4862 / 4862 General: Alert, Oriented x3, Cooperative HEENT: Atraumatic, PERRLA, EOMI, Normocephalic Neck: Supple, No JVD, Negative Carotid Bruits Lungs: Clear to auscultation, Normal air movement Cardiovascular: Regular rate, No murmurs Abdomen: Bowel Sounds Present, Soft, Non Tender Extremities: No clubbing, No cyanosis, No edema, Capillary Refill Less than 3 Seconds Skin: No rashes, No breakdown, - - Right hip post op dressing intact Musculoskeletal: No Tenderness to Palpation of Joints or Extremities Neurological: Cranial nerves II-XII grossly intact, Neuro grossly intact Psych/Mental Status: Normal Affect, Appropriate Microbiology Past 72 Hours 06/10/20 12:21 Interface Orders SARS-CoV-2 Antigen (Rapid) - Final Laboratory Results 06/11/20 08:34: POC Glucose 93 Current Medications Acetaminophen (Acetaminophen 500 Mg Tablet) 1,000 mg PO Q8H [facility] Aspirin (Aspirin 81 Mg Tab.Chew) 81 mg PO BIDCM [facility] Enteral Nutritional Formula (Ensure Surgery 237 Ml Liquid) 237 ml PO TIDCM [facility] Famotidine (Famotidine 20 Mg Tablet) 20 mg PO DAILY [facility] Lactated Ringer's () 1,000 mls @ 125 mls/hr IV .Q8H [facility] Stop: 06/11/20 17:49 Last Infusion: 06/11/20 17:18 Dose: Infused Documented by: Lactated Ringer's () 1,000 mls @ 75 mls/hr IV .[id number] [facility] Stop: 06/11/20 23:09 Last Infusion: 06/11/20 17:17 Dose: Infused Documented by: Lactated Ringer's () 1,000 mls @ 125 mls/hr IV .Q8H [facility] Clindamycin Phosphate 600 mg/ (Dextrose) 54 mls @ 100 mls/hr IV Q6H [facility] Stop: 06/12/20 06:33 Insulin Human Lispro (Insulin Lispro 100 Unit/Ml Insuln.Pen) 1 - 6 unit SC Q4H PRN PRN; Protocol PRN Reason: BG>/= 180, SEE PROTOCOL Ketorolac Tromethamine (Ketorolac 15 Mg/Ml Vial) 15 mg IV Q6H PRN PRN PRN Reason: Pain Score 1-5 Meloxicam (Meloxicam 7.5 Mg Tablet) 7.5 mg PO BID [facility] Morphine Sulfate (Morphine 2 Mg/Ml Syringe) 2 - 4 mg IV Q2H PRN PRN PRN Reason: Pain Score 4-10 Morphine Sulfate (Morphine 4 Mg/Ml Syringe) 2 - 4 mg IV Q2H PRN PRN PRN Reason: Pain Score 4-10 Ondansetron HCl (Ondansetron 4 Mg/2 Ml Vial) 4 mg IV Q8H PRN PRN PRN Reason: NAUSEA Oxycodone HCl (Oxycodone 5 Mg Tablet) 5 - 10 mg PO Q4H PRN PRN PRN Reason: Pain Score 4-10 Promethazine HCl (Promethazine 25 Mg/Ml Syringe) 12.5 mg IM Q6H PRN PRN; Protocol PRN Reason: NAUSEA/VOMITING Senna/Docusate Sodium (Senna/Docusate Sodium 1 Tablet) 2 tablet PO BID [facility] Sodium Chloride (0.9% Saline Lock 10 Ml Syringe) 10 - 40 ml IV UD PRN PRN Reason: SALINE FLUSH Medical Necessity - Tobacco Use Smoking Status: Former smoker Assessment/Plan All Active Problems (Last Reviewed 05/30/20 @ 09:[address] Dave Vogt MD) Encounter for pre-operative cardiovascular clearance (Acute) History of non-ST elevation myocardial infarction (NSTEMI) (Resolved 11/18/15) Nonrheumatic mitral valve regurgitation (Ruled-out) 1. CAD-stable. Heart cath in 2016 demonstrated minimal coronary artery disease. Continue statin. 2. Hyperlipidemia-continue statin. 3. Right hip osteoarthritis status post right total hip replacement 06/11/[address] Steele. Management per Ortho. DVT prophylaxis-aspirin 81 mg twice daily per Ortho. This patient was seen by LOI Bass under the supervision of Dr. Banerjee. <Mark Banerjee F - Last Filed: 06/11/20 18:34> - Physical Exam Vitals/I&O's: Vital Signs Temp Pulse Resp BP Pulse Ox 98.2 F 84 18 126/64 H 94 06/11/20 18:12 06/11/20 18:12 06/11/20 18:12 06/11/20 18:12 06/11/20 18:12 Oxygen Flow Rate (L/min) 6 Oxygen Delivery Method Room Air Weight: 225 lb 1.471 oz Body Mass Index (BMI) 34.2 Intake and Output for Last 24 Hours 06/09/20 06/10/20 06/11/20 23:59 23:59 23:59 Intake Total 5412 / 5412 Balance 5412 / 5412 Microbiology Past 72 Hours 06/10/20 12:21 Interface Orders SARS-CoV-2 Antigen (Rapid) - Final Laboratory Results 06/11/20 08:34: POC Glucose 93 Current Medications Acetaminophen (Acetaminophen 500 Mg Tablet) 1,000 mg PO Q8H [facility] Aspirin (Aspirin 81 Mg Tab.Chew) 81 mg PO BIDCM [facility] Enteral Nutritional Formula (Ensure Surgery 237 Ml Liquid) 237 ml PO TIDCM [facility] Famotidine (Famotidine 20 Mg Tablet) 20 mg PO DAILY [facility] Lactated Ringer's () 1,000 mls @ 75 mls/hr IV .[id number] [facility] Stop: 06/11/20 23:09 Last Infusion: 06/11/20 17:17 Dose: Infused Documented by: Lactated Ringer's () 1,000 mls @ 125 mls/hr IV .Q8H [facility] Clindamycin Phosphate 600 mg/ (Dextrose) 54 mls @ 100 mls/hr IV Q6H [facility] Stop: 06/12/20 06:33 Insulin Human Lispro (Insulin Lispro 100 Unit/Ml Insuln.Pen) 1 - 6 unit SC Q4H PRN PRN; Protocol PRN Reason: BG>/= 180, SEE PROTOCOL Ketorolac Tromethamine (Ketorolac 15 Mg/Ml Vial) 15 mg IV Q6H PRN PRN PRN Reason: Pain Score 1-5 Meloxicam (Meloxicam 7.5 Mg Tablet) 7.5 mg PO BID [facility] Morphine Sulfate (Morphine 2 Mg/Ml Syringe) 2 - 4 mg IV Q2H PRN PRN PRN Reason: Pain Score 4-10 Morphine Sulfate (Morphine 4 Mg/Ml Syringe) 2 - 4 mg IV Q2H PRN PRN PRN Reason: Pain Score 4-10 Ondansetron HCl (Ondansetron 4 Mg/2 Ml Vial) 4 mg IV Q8H PRN PRN PRN Reason: NAUSEA Oxycodone HCl (Oxycodone 5 Mg Tablet) 5 - 10 mg PO Q4H PRN PRN PRN Reason: Pain Score 4-10 Promethazine HCl (Promethazine 25 Mg/Ml Syringe) 12.5 mg IM Q6H PRN PRN; Protocol PRN Reason: NAUSEA/VOMITING Senna/Docusate Sodium (Senna/Docusate Sodium 1 Tablet) 2 tablet PO BID [facility] Sodium Chloride (0.9% Saline Lock 10 Ml Syringe) 10 - 40 ml IV UD PRN PRN Reason: SALINE FLUSH Addendum: Dr. Banerjee I personally examined the patient and reviewed the chart. I agree with the above. 70-year-old male presenting to the hospital for an elective right total hip replacement. He is doing well after surgery, denies any significant pain able to feel sensation in his feet and wiggle his toes. Does not take many medications, would continue all of his home medications. Plan will be for possible discharge in the morning. OBSV E&M: 81231 Subsequent observation care L3
[2020-06-11] MEDS: Aspirin 81 MG TAB.CHEW PO (18:32)
[2020-06-11] MEDS: Ensure Surgery 237 ML LIQUID PO (18:36)
[2020-06-11] MEDS: Senna/Docusate Sodium 1 Tablet 2 TABLET PO (20:24)
[2020-06-12] MEDS: Acetaminophen 500 MG Tablet 1000 MG PO ×2 (00:37→09:51)
[2020-06-12 00:40] VITALS: BP 130/106; PULSE 71; RESP 16; TEMP 36.5; O2SAT 94
[2020-06-12 05:04] VITALS: BP 98/61; PULSE 62; RESP 18; TEMP 36.8; O2SAT 93
[2020-06-12 06:52] LABS: Hematocrit 37.1 % (40-54); Hemoglobin 12.2 g/dL (13.0-16.5); Mean Corp Hgb Conc 32.9 g/dL (32-36); Mean Corpuscular Volume 91.2 fL (80-94); Mean Platelet Vol. 9.7 fl (6.2-12.0); Platelet Count 257 K/mm3 (150-450); RBC Distribution Width CV 13.3 % (11.6-14.6); RBC Distribution Width SD 44.7 fl (35.1-43.9); Red Blood Count 4.07 M/mm3 (4.6-6.2); White Blood Count 15.7 K/mm3 (4.4-11.0)
[2020-06-12 07:18] LABS: Anion Gap 7 (5-15); BUN 18 mg/dL (7-18); Calcium,Total 8.6 mg/dL (8.5-10.1); Chloride 107 mmol/L (98-107); EST Glomerular Filtration Rate 89 mL/min (>60); Est Glom Filt Rate - Afr Amer 108 mL/min (>60); Estimated Creatinine Clearance 74.94 ml/min; Glucose 122 mg/dL (74-106); Potassium 4.3 mmol/L (3.5-5.1); Sodium Level 139 mmol/L (136-145)
[2020-06-12 08:00] VITALS: PULSE 70
[2020-06-12 08:30] VITALS: BP 117/30; PULSE 78; RESP 16; TEMP 36.6; O2SAT 95
--- NOTE | 2020-06-12 09:03 | PCM.PROGNOTE ---
Subjective: Chief complaint: Follow-up after consultation for postoperative medical management. Patient seen and examined. No acute events overnight. Right hip pain is well controlled, he does have some pain upon ambulation. He is feeling great. No other complaints. His vital signs are stable. - Physical Exam Vitals/I&O's: Vital Signs Temp Pulse Resp BP Pulse Ox 97.9 F 78 16 117/30 L 95 06/12/20 08:30 06/12/20 08:30 06/12/20 08:30 06/12/20 08:30 06/12/20 08:30 Oxygen Flow Rate (L/min) 6 Oxygen Delivery Method Room Air Weight: 225 lb 1.471 oz Body Mass Index (BMI) 34.2 Intake and Output for Last 24 Hours 06/10/20 06/11/20 06/12/20 23:59 23:59 23:59 Intake Total 5466 / 5816 808 / 808 Balance 5466 / 5816 808 / 808 General: Alert, Oriented x3, Cooperative, No apparent distress HEENT: Atraumatic, PERRLA, EOMI, Normocephalic Oral: Moist Mucosa, No Gingival or Mucosal Lesions/ Ulcerations Neck: Supple, No JVD, Negative Carotid Bruits, Trachea Midline, Thyroid Normal Size and Texture Lungs: Clear to auscultation, Normal air movement, No rhonchi, No wheeze, No rales Cardiovascular: Regular rate, Regular Rhythm, Normal S1, Normal S2, PMI Normal Abdomen: Bowel Sounds Present, Soft, Non Tender, Non-Distended, No Hepato-splenomegaly Extremities: No clubbing, No cyanosis, No edema Skin: No rashes, No breakdown Lymphatic: No Cervical, Supraclavicular, or Inguinal Adenopathy Neurological: Cranial nerves II-XII grossly intact, Motor Exam 5/5 strength throughout Psych/Mental Status: Normal Affect, Appropriate, Alert and oriented to time, place, person, mood and affect Microbiology Past 72 Hours 06/10/20 12:21 Interface Orders SARS-CoV-2 Antigen (Rapid) - Final Laboratory Results 06/12/20 06:30: WBC 15.7 H, RBC 4.07 L, Hgb 12.2 L, Hct 37.1 L, MCV 91.2, MCH 30.0, MCHC 32.9, RDW Std Deviation 44.7 H, RDW Coeff of Isacc 13.3, Plt Count 257, MPV 9.7 06/12/20 06:30: Sodium 139, Potassium 4.3, Chloride 107, Carbon Dioxide 25.0, Anion Gap 7, BUN 18, Creatinine 0.90, Estim Creat Clear Calc 74.94, Est GFR (MDRD) Af Amer 108, Est GFR (MDRD) Non-Af 89, BUN/Creatinine Ratio 20.0, Glucose 122 H, Calcium 8.6 Current Medications Acetaminophen (Acetaminophen 500 Mg Tablet) 1,000 mg PO Q8H [facility] Last Admin: 06/12/20 00:37 Dose: 1,000 mg Documented by: Aspirin (Aspirin 81 Mg Tab.Chew) 81 mg PO BIDCM [facility] Last Admin: 06/11/20 18:32 Dose: 81 mg Documented by: Enteral Nutritional Formula (Ensure Surgery 237 Ml Liquid) 237 ml PO TIDCM [facility] Last Admin: 06/11/20 18:36 Dose: 237 ml Documented by: Famotidine (Famotidine 20 Mg Tablet) 20 mg PO DAILY [facility] Insulin Human Lispro (Insulin Lispro 100 Unit/Ml Insuln.Pen) 1 - 6 unit SC Q4H PRN PRN; Protocol PRN Reason: BG>/= 180, SEE PROTOCOL Ketorolac Tromethamine (Ketorolac 15 Mg/Ml Vial) 15 mg IV Q6H PRN PRN PRN Reason: Pain Score 1-5 Meloxicam (Meloxicam 7.5 Mg Tablet) 7.5 mg PO BID [facility] Morphine Sulfate (Morphine 2 Mg/Ml Syringe) 2 - 4 mg IV Q2H PRN PRN PRN Reason: Pain Score 4-10 Morphine Sulfate (Morphine 4 Mg/Ml Syringe) 2 - 4 mg IV Q2H PRN PRN PRN Reason: Pain Score 4-10 Ondansetron HCl (Ondansetron 4 Mg/2 Ml Vial) 4 mg IV Q8H PRN PRN PRN Reason: NAUSEA Oxycodone HCl (Oxycodone 5 Mg Tablet) 5 - 10 mg PO Q4H PRN PRN PRN Reason: Pain Score 4-10 Promethazine HCl (Promethazine 25 Mg/Ml Syringe) 12.5 mg IM Q6H PRN PRN; Protocol PRN Reason: NAUSEA/VOMITING Senna/Docusate Sodium (Senna/Docusate Sodium 1 Tablet) 2 tablet PO BID [facility] Last Admin: 06/11/20 20:24 Dose: 2 tablet Documented by: Sodium Chloride (0.9% Saline Lock 10 Ml Syringe) 10 - 40 ml IV UD PRN PRN Reason: SALINE FLUSH Medical Necessity - Tobacco Use Smoking Status: Former smoker Assessment/Plan This is a 70 years old male patient admitted for elective right hip total replacement for right hip osteoarthritis and I am seeing this patient for follow-up after consultation for postoperative medical management. #1 status post right hip direct anterior total replacement: Postoperative day 1. Pain is well controlled, patient has been ambulating. Vital signs are stable. Repeat routine blood work was remarkable for mild leukocytosis which is likely reactive, otherwise unremarkable. Patient has been afebrile. Orthopedic surgery on the case. #2 coronary artery disease: Without history of prior interventions. Stable, continue aspirin and statins. #3 hyperlipidemia: Continue statins. #4 GERD: Continue Pepcid. #5 DVT prophylaxis: Continue aspirin twice daily. This note was generated with [employer] dictation software. It may contain incorrect words, spelling, and punctuation that were not noted in checking the note before signing. Inpatient E&M: [id number] Subs Hosp L2
[2020-06-12 09:32] VITALS: BP 118/67; PULSE 70
--- NOTE | 2020-06-12 09:36 | PCM.PN.ORT ---
Subjective: The patient was sitting in bedside chair upon examination. Patient denies any chest pain, shortness of breath, dizziness, lightheadedness, nausea or vomiting, or calf pain. Pain is controlled on medications. No adverse overnight events. Overall patient is doing very well. He tolerated therapy very well. His pain is well controlled. He does wish to go home today. Objective: Vital signs stable and afebrile. Patient is able to plantarflex and dorsiflex actively. Sensation is intact to light touch to saphenous, sural, superficial and deep peroneal, and tibial distribution. Dressing is clean dry and intact. Patient does have surrounding ecchymosis over the right anterior thigh Negative Homans bilaterally, negative signs and symptoms of DVT. - Physical Exam Vitals/I&O's: Vital Signs Temp Pulse Resp BP Pulse Ox 97.9 F 70 16 118/67 95 06/12/20 08:30 06/12/20 09:32 06/12/20 08:30 06/12/20 09:32 06/12/20 08:30 Oxygen Flow Rate (L/min) 6 Oxygen Delivery Method Room Air Weight: 102.1 kg Body Mass Index (BMI) 34.2 Intake and Output for Last 24 Hours 06/10/20 06/11/20 06/12/20 23:59 23:59 23:59 Intake Total 5466 / 5816 808 / 808 Balance 5466 / 5816 808 / 808 General: Alert, Oriented x3, Cooperative, No apparent distress Microbiology Past 72 Hours 06/10/20 12:21 Interface Orders SARS-CoV-2 Antigen (Rapid) - Final Laboratory Results 06/12/20 06:30: WBC 15.7 H, RBC 4.07 L, Hgb 12.2 L, Hct 37.1 L, MCV 91.2, MCH 30.0, MCHC 32.9, RDW Std Deviation 44.7 H, RDW Coeff of Isacc 13.3, Plt Count 257, MPV 9.7 06/12/20 06:30: Sodium 139, Potassium 4.3, Chloride 107, Carbon Dioxide 25.0, Anion Gap 7, BUN 18, Creatinine 0.90, Estim Creat Clear Calc 74.94, Est GFR (MDRD) Af Amer 108, Est GFR (MDRD) Non-Af 89, BUN/Creatinine Ratio 20.0, Glucose 122 H, Calcium 8.6 Current Medications Acetaminophen (Acetaminophen 500 Mg Tablet) 1,000 mg PO Q8H [facility] Last Admin: 06/12/20 00:37 Dose: 1,000 mg Documented by: Aspirin (Aspirin 81 Mg Tab.Chew) 81 mg PO BIDCM [facility] Last Admin: 06/11/20 18:32 Dose: 81 mg Documented by: Enteral Nutritional Formula (Ensure Surgery 237 Ml Liquid) 237 ml PO TIDCM [facility] Last Admin: 06/11/20 18:36 Dose: 237 ml Documented by: Famotidine (Famotidine 20 Mg Tablet) 20 mg PO DAILY [facility] Insulin Human Lispro (Insulin Lispro 100 Unit/Ml Insuln.Pen) 1 - 6 unit SC Q4H PRN PRN; Protocol PRN Reason: BG>/= 180, SEE PROTOCOL Ketorolac Tromethamine (Ketorolac 15 Mg/Ml Vial) 15 mg IV Q6H PRN PRN PRN Reason: Pain Score 1-5 Morphine Sulfate (Morphine 2 Mg/Ml Syringe) 2 - 4 mg IV Q2H PRN PRN PRN Reason: Pain Score 4-10 Morphine Sulfate (Morphine 4 Mg/Ml Syringe) 2 - 4 mg IV Q2H PRN PRN PRN Reason: Pain Score 4-10 Ondansetron HCl (Ondansetron 4 Mg/2 Ml Vial) 4 mg IV Q8H PRN PRN PRN Reason: NAUSEA Oxycodone HCl (Oxycodone 5 Mg Tablet) 5 - 10 mg PO Q4H PRN PRN PRN Reason: Pain Score 4-10 Promethazine HCl (Promethazine 25 Mg/Ml Syringe) 12.5 mg IM Q6H PRN PRN; Protocol PRN Reason: NAUSEA/VOMITING Senna/Docusate Sodium (Senna/Docusate Sodium 1 Tablet) 2 tablet PO BID [facility] Last Admin: 06/11/20 20:24 Dose: 2 tablet Documented by: Sodium Chloride (0.9% Saline Lock 10 Ml Syringe) 10 - 40 ml IV UD PRN PRN Reason: SALINE FLUSH Medical Necessity - Tobacco Use Smoking Status: Former smoker Assessment/Plan All Active Problems (Last Reviewed 05/30/20 @ 09:[address] Dave Vogt MD) Encounter for pre-operative cardiovascular clearance (Acute) History of non-ST elevation myocardial infarction (NSTEMI) (Resolved 11/18/15) Nonrheumatic mitral valve regurgitation (Ruled-out) 1. S/P direct anterior right total hip arthroplasty POD #1 2. Continue Pain Medications: Tylenol and oxycodone 3. DVT Prophylaxis: Take 81 mg aspirin twice daily for 4 weeks postoperatively for DVT prophylaxis 4. PT/OT: Weightbearing as tolerated 5. H & H: 12.2/37.1, asymptomatic. Postoperative anemia secondary to acute blood loss from surgery without any intra operative complications. 6. Reactive leukocytosis: Currently 15.7, afebrile. Patient did receive Decadron intraoperatively 7. Continue postoperative medical management per medicine 8. Encouraged Incentive Spirometry 9. Disposition: Patient is orthopedically stable. He is tolerating physical therapy very well. Pain is well controlled. Plan will be for discharge home today. Prescriptions will be E scribed to primary pharmacy. Patient will follow-up per postop instructions. He has outpatient physical therapy established. I have reviewed the [place] Automated Rx Reporting System (OARRS) report for this patient for refill pattern and other prescriber involvement as part of the appropriate surveillance for the provision of acute and chronic controlled medications. The report was requested and reviewed on the date of this entry and was considered in the prescribing process.
--- NOTE | 2020-06-12 09:42 | DCINST_ITS ---
Discharge Diet: No Restrictions Discharge Activity: May Not Drive - while taking narcotic pain medications. May shower in (days): 1 - Okay to shower if dressing is intact to skin. Turn dressing away from water. Do not submerge underwater for 6 weeks postoperatively. Ice area for (Minutes): 20 - Every 1-2 hours while awake Weight Bearing Status: Weight bearing as tolerated Elevate: Operative Extremity Additional Activity Instructions:: Wear elastic stockings for 2 weeks. DO NOT use alcohol with narcotic pain medication. DO NOT make important decisions while taking narcotic medication. If you have problems with taking your medication (rash, itching, nausea, etc.) call the office at once. Call your doctor if your incision/area has: Increased Pain/ Swelling, Increased Redness, Foul Smelling Discharge Call your doctor if you observe: Fever of 101 or Higher Remove Dressing in (days):: 4 - Okay to remove on June 16, 2020 Additional Instructions: Follow [facility] Post-op Instructions. Once postoperative dressing has been removed only use gentle soap and water over the incision. Do not use any ointments, Neosporin, salves, alcohol pads over the incision for 6 weeks postoperatively. Do not submerge underwater for 6 weeks postoperatively. Allergies/Adverse Reactions: Allergies Penicillins Allergy (Severe, Verified 05/30/20 07:00) throat swelling Medications to take at Discharge Cholecalciferol (Vitamin D3) [Vitamin D3] 1 cap PO DAILY 05/28/20 Mometasone/Formoterol [Dulera 100 Mcg-5 Mcg Inhaler] 2 puff IH Q6H PRN PRN 05/28/20 atorvastatin 20 mg tablet 20 mg PO QDAY #90 tab 05/30/20 Acetaminophen [Tylenol] 1,000 mg PO Q8H #100 tab 06/12/20 Aspirin [Aspirin, Baby] 81 mg PO BIDCM tab.chew 06/12/20 Famotidine [Pepcid] 20 mg PO DAILY #30 tab 06/12/20 Oxycodone [Oxyir] 5 - 10 mg PO Q4H PRN PRN 4 Days #36 tab 06/12/20 Senna/Docusate Sodium [Senokot-S] 2 tab PO BID #14 tab 06/12/20 The following prescriptions were given: Oxycodone [Oxyir] 5 - 10 mg PO Q4H PRN PRN 4 Days #36 tab PRN Reason: Pain Score 4-10 Prescription Printed Famotidine [Pepcid] 20 mg PO DAILY #30 tab Transmission Status: Pending to [facility] Senna/Docusate Sodium [Senokot-S] 2 tab PO BID #14 tab Transmission Status: Pending to [facility] Acetaminophen [Tylenol] 1,000 mg PO Q8H #100 tab Transmission Status: Pending to [facility] Primary Care Physician: Barry Posadas MD [Primary Care Provider] - Test Results: Test results from this visit will be discussed in further detail at your follow- up appointment, if applicable. Please Follow Up With: [facility] When: 06/16/20 @ 11:00 with Prem Please Follow Up With: Nikos Mccord PA-C When: 06/25/20 @ 9:30 am
[2020-06-12] MEDS: Senna/Docusate Sodium 1 Tablet 2 TABLET PO (09:50)
[2020-06-12] MEDS: Famotidine 20 MG Tablet PO (09:51)
[2020-06-12] MEDS: Aspirin 81 MG TAB.CHEW PO (09:52)
--- NOTE | 2020-06-12 10:15 | CASEMGMT ---
HILARIO CEDEÑO Face to Face with patient for initial transition planning/care coordination assessment. HILARIO CEDEÑO introduced self and role at [facility]. Patient sitting up in chair, alert and oriented. Patient willing to participate in assessment and is able to answer all questions appropriately. Care providers, pharmacy, and demographics verified. Patient wishes to discharge home. Patient states he has no further needs or concerns at this time. CM to follow for discharge planning needs that may arise. 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 Pt states he was independent at home. Transportation: DME/HHC: Pt reports he has a walker, cane, raised toilet seat and walk in shower with grab bars at home. Pt denies previous HHC. Disposition Plan: Patient has an appointment set up with [facility] for outpatient therapy. Patient to discharge home with family support and follow up plans in place.
[2020-06-12 11:34] VITALS: BP 104/54; PULSE 71; RESP 15; TEMP 37.6; O2SAT 95
--- NOTE | 2020-06-12 12:17 | PHA.DC.MC ---
Pharmacy Service has performed discharge medication reconciliation and counseling for this patient. The patient was counseled on the following discharge medications and changes in medications for homegoing were reviewed. 1. ASPIRIN 2. OXYCODONE 3. PEPCID 4. ACETAMINOPHEN 5. SENNA-S The Reason for Use, instructions for use, and potential side effects were reviewed for all new medications. The patient's questions regarding all of their medications were answered. The patient was able to verbally demonstrate an understanding of their discharge medications. Home Medications Cholecalciferol (Vitamin D3) [Vitamin D3] 1 cap PO DAILY 05/28/20 Mometasone/Formoterol [Dulera 100 Mcg-5 Mcg Inhaler] 2 puff IH Q6H PRN PRN 05/28/20 atorvastatin 20 mg tablet 20 mg PO QDAY #90 tab 05/30/20 Acetaminophen [Tylenol] 1,000 mg PO Q8H #100 tab 06/12/20 Aspirin [Aspirin, Baby] 81 mg PO BIDCM tab.chew 06/12/20 Famotidine [Pepcid] 20 mg PO DAILY #30 tab 06/12/20 Oxycodone [Oxyir] 5 - 10 mg PO Q4H PRN PRN 4 Days #36 tab 06/12/20 Senna/Docusate Sodium [Senokot-S] 2 tab PO BID #14 tab 06/12/20 The patient's discharge medication list was reviewed for discrepancies and discrepancies were resolved.
--- NOTE | 2020-06-12 16:04 | NURSING ---
Late entry: Student documentation reviewed.
== END 2020-06-12 13:30 | disposition home or self-care (01) ==
LOC: SDC 15:50 → MS3 15:50
PROVIDERS: Anesthesiology; Admitting Provider Specialist; PCP Family Medicine; Referring Provider Specialist; Visit Provider Specialist
PROC: (CPT 27284; principal; 2020-06-11 09:50)
DX: M16.11 Unilateral primary osteoarthritis, right hip (principal); Z20.828 Contact with and (suspected) exposure to other viral communicable diseases; I25.2 Old myocardial infarction; J45.909 Unspecified asthma, uncomplicated; I25.10 Atherosclerotic heart disease of native coronary artery without angina pectoris; E78.5 Hyperlipidemia, unspecified; Z79.82 Long term (current) use of aspirin; Z87.891 Personal history of nicotine dependence; Z79.899 Other long term (current) drug therapy
CPT/HCPCS: 27130; 36415; 73501; 73502; 76000; 80048; 82962; 83735; 85025; 85027; 87081; 87426; 96365; 96366; 97110; 97116; 97162; 97166; 97530; 97535; 99218; 99251; C1776; C9803; J7040; J7120; G0378; G0379; G0463

== ENCOUNTER 2020-06-18 14:37 | Outpatient (RCR) | payer MEDICARE, SELFPAY ==
[2020-06-11 16:28] VITALS: BMI 34.2
== END 2020-06-18 23:59 ==
LOC: IMMUN 14:37
PROVIDERS: PCP Family Medicine; Visit Provider Family Medicine
DX: Z23 Encounter for immunization (principal)
CPT/HCPCS: 0011A; 0012A; 91301

== ENCOUNTER → 2020-10-14 10:27 | Outpatient (CLI) | payer MEDICARE, OTHER, SELFPAY ==
[2020-06-11 16:28] VITALS: BMI 34.2
[2020-10-14 11:44] LABS: PSA,Total- Diagnostic 3.29 ng/mL (0.0-4.0)
[2020-10-14 12:04] LABS: Bacteria 0 SEEN /hpf (None Seen); Mucous, Urine 0 SEEN /hpf (<or=2+); White Blood Cells 0 SEEN /hpf (0-5)
[2020-10-14 12:06] LABS: Color, Urine Yellow (Yellow); Glucose, Dipstick Normal (Normal); Ketone-Dipstick Negative (Negative); Leukocyte Esterase-Dipstick Negative /ul (Negative); Nitrite-Dipstick Negative (Negative); Occult Blood-Urine 10 /ul (Negative); Protein-Dipstick Negative (Negative); Urine Bilirubin Dipstick Negative (Negative); Urine Clarity Clear (Clear); Urine Urobilinogen Normal (Normal)
[2020-10-14 12:23] LABS: Red Blood Cells-Urine 0-5 SEEN /hpf (0-5); Squamous Epithelial Cells - UA 0-5 SEEN /hpf (0-5)
== END ==
PROVIDERS: PCP Family Medicine; Referring Provider Nurse Practitioner Adult Health; Visit Provider Nurse Practitioner Adult Health
DX: N40.2 Nodular prostate without lower urinary tract symptoms (principal); R31.29 Other microscopic hematuria
CPT/HCPCS: 36415; 81001; 84153

== ENCOUNTER → 2020-12-02 | Outpatient (CLI) | payer MEDICARE, OTHER, SELFPAY ==
[2020-06-11 16:28] VITALS: BMI 34.2
--- NOTE | 2020-12-02 | IMM_PTH ---
PATIENT: AIXA LOPEZ LOC: [facility] U#:[id number] AGE/SX: 70/M ROOM: RE12/02/[address]: Dr. Kris Kay MD : 1950 BED: DIS: 12/02/2020 SPEC #: [id number] RECD: 12/03/20 15:07 STATUS: LUBNA REQ #: [id number] MERRY: 12/02/20 00:[address]: Kris Kay DEPT: IMMUNOHISTOCHEMISTRY RECD BY: Dahlia Aguilar ENTERED: 12/03/20 15:09 SP TYPE: IMMUNO OTHR DR: Dr. Vivek Posadas MD Tissues: A - PROSTATE RIGHT E - PROSTATE LEFT F - PROSTATE LEFT Procedures: 34BE12 (add) P40 (add) 34BE12 (initial) PHYSICIAN & INSTITUTION [place] [address] SPECIMEN INFORMATION: Tissue Source: A - Right prostate, apex, E - Left prostate, mid, F - Left prostate, base Clinical Info: R97.20 Specimen Number: [id number] A, E & F CPT code: 94365, 01000 x5 METHODOLOGY: Deparaffinized sections of prefer/formalin-fixed tissue or PAP/DQ stained slides are incubated with monoclonal/polyclonal antibodies/oligonucleotide probes. Localization is made via biotin free immunoperoxidase method. Appropriate controls are performed and reacted as expected. Results on target cell population are indicated in the following table: RESULTS: ANTIBODY / CLONE RESULT Block A P40 (BC28) negative 34BE12 (34BE12) negative Block E P40 (BC28) positive 34BE12 (34BE12) positive Block F P40 (BC28) negative 34BE12 (34BE12) negative These tests were developed and their performance characteristics determined by [facility]. They may not have been cleared or approved by the U.S. Food and Drug Administration. The FDA has determined that such clearance or approval is not necessary. The above immunohistochemical/dualISH markers are ordered and reviewed by the Pathologist. INTERPRETATION: A. Right prostate, apex, core biopsy: Adenocarcinoma. E. Left prostate, mid, core biopsy: Benign prostatic tissue. F. Left prostate, base, core biopsy: Adenocarcinoma. AM:samantha 12/04/2020
--- NOTE | 2020-12-02 08:00 | PROSBIL_PTH ---
PATIENT: AIXA LOPEZ LOC: [facility] U#:[id number] AGE/SX: 70/M ROOM: RE12/02/[address]: Dr. Kris Kay MD : 1950 BED: DIS: 12/02/2020 SPEC #: [id number] RECD: 12/02/20 11:09 STATUS: LUBNA REDianna #: [id number] MERRY: 12/02/20 08:[address]: Kris Kay DEPT: SURGICAL PATHOLOGY RECD BY: Maty Hoang ENTERED: 12/02/20 13:13 SP TYPE: PROST BX [facility]IA DEL CARMEN DR: Dr. Vivek Posadas MD Tissues: A - PROSTATE RIGHT B - PROSTATE RIGHT C - PROSTATE RIGHT D - PROSTATE LEFT E - PROSTATE LEFT F - PROSTATE LEFT Procedures: PROSTATE BX HEADER OPERATION: Prostate biopsy PRE-OP DIAGNOSIS: R97.20 TISSUE SUBMITTED: A - Right apex, B - Right mid, C - Right base, D - Left apex, E - Left mid, F - Left base MICROSCOPIC DIAGNOSIS A. Right prostate, apex, core biopsy: Adenocarcinoma. Warwick grade: 7 (4+3) Cores involved: 1 out of 1 core Tissue involved: 5% Greatest tumor length: 2 millimeters Perineural invasion: Present See comment. B. Right prostate, mid, core biopsy: Adenocarcinoma. Jaclyn grade: 7 (4+3) Cores involved: 2 out of 2 cores Tissue involved: 75% Greatest tumor length: 8 millimeters Perineural invasion: Present C. Right prostate, base, core biopsy: Adenocarcinoma. Warwick grade: 8 (5+3) Cores involved: 2 out of 2 cores Tissue involved: 80% Greatest tumor length: 9 millimeters Perineural invasion: Present D. Left prostate, apex, core biopsy: Benign prostatic tissue. E. Left prostate, mid, core biopsy: Focal high-grade prostatic intraepithelial neoplasia (HGPIN). See comment. F. Left prostate, base, core biopsy: Adenocarcinoma. Warwick grade: 6 (3+3) Cores involved: 1 out of 2 cores Tissue involved: 2% Greatest tumor length: 1.5 millimeters See comment. AM:samantha 12/03/2020 COMMENT A, E & F - Immunohistochemistry ([id number]) supports the above diagnosis. Case has been reviewed in consultation with Dr. Yoo who concurs with the above diagnosis. IDC:[email or web address] MICROSCOPIC DESCRIPTION Slides are reviewed. GROSS DESCRIPTION A - Received is one container designated prostate, right apex. The specimen consists of one elongated fragment of light main-white soft tissue measuring 1 cm in length and 0.1 cm in diameter. The specimen is totally submitted in one cassette. B - Received is one container designated prostate, right mid. The specimen consists of two elongated fragments of light main-white soft tissue each measuring 1 cm in length and 0.1 cm in diameter. The specimen is totally submitted in one cassette. C - Received is one container designated prostate, right base. The specimen consists of two elongated fragments of light main-white soft tissue each measuring 1 cm in length and 0.1 cm in diameter. The specimen is totally submitted in one cassette. D - Received is one container designated prostate, left apex. The specimen consists of one elongated fragments of light main-white soft tissue measuring 1.5 cm in length and 0.1 cm in diameter. The specimen is totally submitted in one cassette. E - Received is one container designated prostate, left mid. The specimen consists of two elongated fragments of light main-white soft tissue each measuring 1 cm in length and 0.1 cm in diameter. The specimen is totally submitted in one cassette. F - Received is one container designated prostate, left base. The specimen consists of two elongated fragments of light main-white soft tissue each measuring 1.5 cm in length and 0.1 cm in diameter. The specimen is totally submitted in one cassette. / AM:samantha 12/02/20 TC:0 CPT: G0146
== END | disposition home or self-care (01) ==
LOC: LABSPEC 11:41
PROVIDERS: PCP Family Medicine; Visit Provider Urology
DX: R97.20 Elevated prostate specific antigen [PSA] (principal)
CPT/HCPCS: 88305; 88341; 88342; G0416

== ENCOUNTER → 2020-12-12 13:47 | Outpatient (CLI) | payer MEDICARE, OTHER, SELFPAY ==
[2020-06-11 16:28] VITALS: BMI 34.2
--- NOTE | 2020-12-12 13:48 | CT_ITS ---
STUDY: CT ABDOMEN AND PELVIS WITH CONTRAST REASON FOR EXAM: Male, 70 years old. PROSTATE CA. Newly diagnosed. RADIATION DOSAGE (If Supplied By Facility): CTDIvol = ( 18.19 ) mGy, DLP = ( 1974.01 ) mGycm TECHNIQUE: Transaxial images were obtained from the dome of the diaphragm to the symphysis pubis without oral contrast. IV 100ML ISOVUE 300 was administered. Sagittal and coronal images were reconstructed. Individualized dose optimization techniques were used for this CT. COMPARISON: None. FINDINGS: Minimal linear scarring in the posterior medial segment of the right lower lobe. Calcified right hilar lymph nodes. Mild coronary artery calcification. There is decreased attenuation of the liver consistent with steatosis. There is a 2.6 m cyst in the left lobe of liver. There is also evidence of a 1.1 cm cyst in the medial aspect of the right lobe of the liver. Normal gallbladder and extrahepatic biliary system. There are multiple benign calcified granulomata of the spleen. Normal pancreas. Normal bilateral adrenal glands. There is a 2.17 m cyst in the lower pole of the right kidney. Normal left kidney. Normal visualized stomach. Normal small intestine. There are scattered colonic diverticula consistent with diverticulosis. The appendix is visualized and appears normal. There is scattered atherosclerotic calcification of the abdominal aorta, without a demonstrated aneurysm. Normal inferior vena cava. Normal retroperitoneum. Normal urinary bladder. There are prostatic calcifications. The prostate measures 4.8 cm x 4.6 cm cyst. Normal abdominal wall. There are diffuse degenerative changes of the visualized lumbar spine. Minimal anterior listhesis of L4 on L5. Minimal retrolisthesis of L5 on S1. Spinal stenosis at the L4-L5 and L5-S1 levels. The patient is status post right hip replacement. CT/Abdomen/Pelvis WITH Contrast IMPRESSION: Fatty infiltration of the liver. Hepatic cysts. Electronically Signed: Andi Gaitan MD at 15:15 EDT , Service support ,
[2020-12-12 14:01] LABS: EGFR FINGERSTICK > 60.0000 mL/min (>60)
== END ==
PROVIDERS: PCP Family Medicine; Referring Provider Urology; Visit Provider Urology
DX: C61 Malignant neoplasm of prostate (principal)
CPT/HCPCS: 74177

== ENCOUNTER → 2020-12-15 09:01 | Outpatient (CLI) | payer MEDICARE, OTHER, SELFPAY ==
[2020-06-11 16:28] VITALS: BMI 34.2
--- NOTE | 2020-12-15 09:03 | NM_ITS ---
CLINICAL: Male, 70 years old. 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 FINDINGS: The patient is status post right total hip replacement. Increased radiopharmaceutical uptake is seen at the operative site. Mild degree of increased uptake is seen in the acromion clavicular joints most likely degenerative in nature. There is no evidence of bony metastasis. NM/Bone Scan Whole Body IMPRESSION: No evidence of bony metastasis. The patient is status post right total hip preplacement with postoperative changes. Electronically Signed: Andi Gaitan MD at 13:46 EDT , Service support ,
== END ==
PROVIDERS: PCP Family Medicine; Referring Provider Urology; Visit Provider Urology
DX: C61 Malignant neoplasm of prostate (principal)
CPT/HCPCS: 78306; A9503

== ENCOUNTER 2021-01-21 10:03 | Day surgery (SDC) | payer MEDICARE, OTHER, SELFPAY ==
--- NOTE | 2021-01-15 08:58 | EKG12_ITS ---
Test Reason : PRE OP Blood Pressure : / mmHG Vent. Rate : 065 BPM Atrial Rate : 065 BPM P-R Int : 136 ms QRS Dur : 130 ms QT Int : 448 ms P-R-T Axes : 053 019 041 degrees QTc Int : 465 ms Poor data quality, interpretation may be adversely affected Normal sinus rhythm Right bundle branch block Abnormal ECG Confirmed by DARRIUS SINGER, ANNETTE ([id number]), graphics editor SELWYN DIETRICH ([id number]) on 01/16/2021 1:18:52 PM Referred By: Kris Kay Confirmed By:JOZEF RIZO MD
[2021-01-15 09:33] LABS: Hematocrit 46.3 % (40-54); Hemoglobin 15.1 g/dL (13.0-16.5); Mean Corp Hgb Conc 32.6 g/dL (32-36); Mean Corpuscular Volume 95.1 fL (80-94); Mean Platelet Vol. 9.8 fl (6.2-12.0); Platelet Count 252 K/mm3 (150-450); RBC Distribution Width CV 13.2 % (11.6-14.6); RBC Distribution Width SD 46.5 fl (35.1-43.9); Red Blood Count 4.87 M/mm3 (4.6-6.2); White Blood Count 5.5 K/mm3 (4.4-11.0)
[2021-01-15 10:45] LABS: Anion Gap 3 (5-15); BUN 15 mg/dL (7-18); BUN/Creat Ratio 17.8 RATIO (10-20); Calcium,Total 9.1 mg/dL (8.5-10.1); Chloride 108 mmol/L (98-107); Creatinine, Serum 0.84 mg/dL (0.70-1.30); EST Glomerular Filtration Rate 96 mL/min (>60); Est Glom Filt Rate - Afr Amer 116 mL/min (>60); Glucose 93 mg/dL (74-106); Potassium 4.1 mmol/L (3.5-5.1); Sodium Level 140 mmol/L (136-145)
[2021-01-21] VITALS (11 sets, daily range): BP systolic 108–141; BP diastolic 70–95; PULSE 53–78; RESP 14–16; TEMP 36.2–37.2; O2SAT 91–95; BMI 32.5
[2021-01-21] MEDS: Lactated Ringers 1,000 ML 100 ML IV ×3 (10:15→16:51)
[2021-01-21] MEDS: Ciprofloxacin 400 MG/200 ML BAG 200 MG IV (13:00)
[2021-01-21] MEDS: Lactated Ringers 1,000 ML 150 ML IV (13:05)
--- NOTE | 2021-01-21 13:06 | PCM.DC ---
Discharge Instructions Diet Discharge Diet: Light diet - advance as tolerated and Soft diet Activity Discharge Activity: May Not Drive (while taking narcotic pain medications.) Dressing / Incision Call your doctor if your incision/area has: Continuous Slow Oozing, Increased Pain/ Swelling, Foul Smelling Discharge and Swelling at the incision site Call your doctor if you observe: Fever of 101 or Higher Suture Line Care: Avoid Pulling/Pushing and Avoid Pinching/Bending Change Dressing in: leave in place till F/U Remove Dressing in: leave in place till F/U Cleanse incision/area with: Soap & Water and Keep Dressing Clean & Dry Catheter: Liu to leg bag and Liu to large bag Drain: [place] Follow Up Care Please Follow Up With: Kris Kay MD When: Appointment Tuesday at 10 am for cath removal, [phone] Test Results: Dr Kay will call you with pathology report. Discharge Plan Admission Primary Reason for Your Visit: Radical Prostatectomy Attending Provider: Kris Kay Primary Care Provider: Barry Posadas Instructions Patient Instructions: Radical Prostatectomy Dc Discharge Orders/Prescriptions Prescriptions: New docusate sodium [Colace] 100 mg capsule 100 mg PO BID Qty: 20 RF: 0 ciprofloxacin HCl 500 mg tablet 500 mg PO BID Qty: 20 RF: 0 oxycodone-acetaminophen 5-325 mg tablet 1 tab PO Q6H PRN (Reason: pain) 7 Days Qty: 14 RF: 0 Continued atorvastatin 20 mg tablet 20 mg PO QDAY Qty: 90 RF: 3 mometasone-formoterol 8.8 GM HFA aerosol inhaler 2 puff IH Q6H PRN PRN (Reason: Wheezing) RF: 0 Cholecalciferol (Vitamin D3) [Vitamin D3] 5,000 UNIT capsule 1 cap PO DAILY RF: 0 Held aspirin 81 MG tablet,chewable 81 mg PO DAILY RF: 0 Hold Instructions: Resume on 02/04/21. Referrals / Follow Up: Barry Posadas MD [Primary Care Provider] - Kris Kay MD [STAFF PHYSICIAN] - Disposition Disposition (needs filled in before D/C Order can be placed): Home, Self Care
[2021-01-21] MEDS: Bupivacaine Mpf 0.5% 30 ML VIAL (16:16)
--- NOTE | 2021-01-21 16:30 | OP.PCM_ITS ---
Report of Operation Date of Procedure: 01/21/21 Pre-Operative Diagnosis: prostate cancer Post-Operative Diagnosis: same Surgery/Procedure Performed:: laparoscopic robotic assisted radical prostatectomy and bilateral lymphnode dissection,. Description of Surgical Findings:: Patient presented to the hospital for treatment of his prostate cancer with radical prostatectomy. In the preoperative setting we discussed the options of management for his prostate cancer including active surveillance, radiation treatments, radioactive seeds, and radical robotic prostatectomy. We discussed the side effects of surgery including the potential to lose erections. We discussed the potential to have bladder control problems with stress incontinence which can be temporary or permanent. We discussed the risk of the surgery including the risk of general anesthetic, risk of bleeding, risk of infection, and risk of formation of hernia either incisional hernia or inguinal hernia. After long discussion with the patient the preoperative setting and also reviewed this in the preop area patient signed the consent form and we proceeded with a radical prostatectomy. Patient was taken back to the operating room he was identified, time out proc edure was performed and he was placed supine on the table he underwent general anesthesia with intubation. The abdomen was shaved prepped and draped in usual sterile fashion as well as the penis and testicles. A 16 [place] catheter was placed into the bladder with clear return of urine. I then made an incision in the umbilicus and dissected down to the fascia advance a Veress needle into the peritoneal cavity and insufflated the peritoneal cavity with CO2 gas. I then placed a 12 mm trocar above the umbilicus. I then visualized the placement of the rest of the trochars, I placed a right arm robotic trocar, and air seal trocar, a suction port 5 mm trocar. And on the left side I placed 2 robotic arms. Once all the trochars were in placed the patient was put in steep Trendelenburg. And the robot was docked the arms were docked and then I placed the 0 degree camera through the robotic arm and also used a 30 degree camera during certain parts of the case. I used scissors in the right arm, prograsp in the third arm, and a bipolar in the second arm. Initial dissection was to free the sigmoid colon off the lateral wall this was done by meticulously dissecting off the peritoneum and the sigmoid colon off the left lateral wall. This then allowed the prograsp to retract the sigmoid colon out of the pelvis. I then went below the bladder and identified the vas deferens incised the peritoneum over the vas deferens and traced the vas deferens below the bladder to the prostate and identified the right and left vasa deferens. Below behind the vas deferens then the seminal vesicles were identified. I then dissected the seminal vesicle free using pinpoint electrocautery and then we identified the other seminal vesicle and then dissected this using pinpoint electrocautery I then elevated the vas deferens and several vesicles off the prostate and was able to sweep the Denonvilliers' fascia off the prostate posteriorly all the way up to the apex of the prostate. Working laterally I made sure I went as lateral as possible to sweep the Denonilliers' fascia off the posterior aspect of the prostate and worked my way back, I then transected the vas deferens and the left and right side the seminal vesicles were then dissected free. And then I pulled out of the pelvis. At this point the bladder was dropped creating the space of Retzius with the bladder on traction with the fourth arm. Using electrocautery I dissected in the anterior peritoneal fascia and then created the space of Retzius dissecting towards the prostate. The pelvic lymph node dissection was then performed both on the left and the right pelvic lymph nodes the nodes that were taken on the right side extended from the right iliac artery lateral pelvic sidewall up to the junction of the artery and the lymph nodes and down to the obturator nerve and then also below the diesel tractor operator nerve all the lymph nodes were removed during to remove those lymph nodes we used clips and electrocautery to control small blood vessels and also the control lymphatic. I then went to the left side and again did an extensive lymph node dissection starting of the left iliac artery extending the left iliac vein on the lateral sidewall down to the obturator nerve and the left side beyond the diesel tractor operator nerve down further behind it cleaning out all the lymphatic tissue all this tissue was sent off as a specimen we use clips and electrocautery during the dissection. At the end we cleaned out all the lymphatic tissue on the right pelvic wall and no lymphatic tissue in the left pelvic wall. The prostate was then cleaned of the fat over the prostate and the fourth arm was used to retract the bladder and place traction. I then identified the endopelvic fascia that was overlying the prostate on the right side I incised endopelvic fascia and wwept the levator muscles off the prostate all the way to the apex on the right side, I then worked my way anterior to the prostate then transected to the puboprostatic ligament and the underlying dorsal vein complex was not injured. I then went to the other side and identified the endopelvic fascia in the left side incised in a fashion the left side and swept the levator muscles off the prostate on the left side all the way up to the apex the puboprostatic ligament on the left side was then dissected and transected I then freed up the fascia overlying the dorsal vein complex. I then used the prograsp to encircled the dorsal vein complex with the prograsp and then switched over to the right and left needle fire truck driver and suture ligated the dorsal vein complex above the prograsp. The prograsp was then placed back in the bladder and put back on traction I then identified the junction between the bladder and the prostate and dissected down between the bladder and the prostate untilI came across the catheter we then dissected posteriorly to the bladder and prostate to free the prostate and the bladder off each other and the muscles between the bladder and the prostate was then cauterized to free up the bladder. I then went on top of the prostate and identified the endopelvic fascia on top of the prostate this was incised all the way to the apex and then we swept the endopelvic fascia off the prostate laterally and then identified the plane between endopelvic fascia and the prosthetic pseudocapsule and swept the fascia laterally until reaching the course of the neurovascular bundles and then released the neurovascular bundles off the prostate laterally all the way back in a retrograde fashion back to the junction of the pedicles then the prostate w as placed on traction with the fourth arm pulling the prostate laterally identified the pedicle to the prostate between the seminal vesicles and the and the neurovascular bundle and this was taken using sequential small hemolocks. After the pedicle was taken the I then dissected underneath the prostate sweeping the neurovascular bundle off the prostate we able to follow the nice smooth plane between the neurovascular bundle and the pseudocapsule all the way to the apex once this was identified we swept this up all the way up to the apex and there was perfect nerve sparing on the right side. Then went to the left side the prostate identified the endopelvic fascia over the left side of the prostate I incised the endopelvic fascia all the way to the apex and then swept this off laterally I then released the neurovascular bundles on the left side of the prostate sweeping him off the prostate laterally I then elevated the prostate up up with the prostate and traction identified the pedicle to the prostate on the left side and then the pedicles taken with sequential Hem-o-abhi clips I then was able to dissected the neurovascular bundle off the left posterior aspect the prostate this was a perfect dissection all the way up on the left side following the pseudocapsule all the way up the left side until we reached the apex of the prostate. After the both the neurovascular bundles has been swept off the posterior to the prostate I then went above and transected the dorsal vein complex there was minimal to no bleeding but then dissected down to the urethra and circumfencial dissected around the urethra I then switched the right and left arm with the needle drivers and I suture-ligated the dorsal vein complex again just to ensure that there was no bleeding from the dorsal vein complex. I then transected through the urethra with scissors and the prostate was then freed and released off the prostate bed and put an Endo Catch bag. At this point the bladder neck was reconstructed and then an anastomosis was performed between the prostate and the bladder with a 3 oh V-Loc stitch in a running fashion starting from the bladder neck at the 6 o'clock position working to the 12 o'clock position with continuous stitches to complete a perfect anastomosis between the bladder and the prostate. I then placed a new catheter into the bladder, an 18 [place] tip catheter flushed the bladder and there was no leakage from the anastomosis I put 10 cc in the balloon and pulled it up pulled back gently. I then ensured that there was no bleeding from the dorsal vein complex no bleeding from the neurovascular bundles FloSeal was placed as necessary once hemostasis was ensured and adequate then I placed the bladder back in position in the pelvis the prostate was exchanged to the camera port I closed the air seal port with a 10 12 [place] Guido stitch. And the extracted the prostate through the umbilicus. The robot was undocked all the ports were removed under direct visualization then closed the extraction site with 0 Vicryl with a CT1 needle once the extraction site was closed. I then closed all the incision with subcuticular stitches with 4-0 Monocryl and then bandages were placed on the incisions catheter was flushed to make sure it was draining well there was no clots and it was crystal clear patient's anesthetic was reversed he was extubated and taken back to the PACU in stable condition all the needles and sponges and instruments were accounted for. Blood loss was minimal and the drain was a 18 [place] Morton catheter. No other surgical drain was left. I was present during the entire case. Surgeon: leoncio Type of Anesthesia: General Drains: 20 fr morton Admit VTE Documentation VTE Present on Admission: No VTE Mechan Device Prophylaxis: SCD's
[2021-01-21] MEDS: Ketorolac 30 MG/ML Syringe IV (16:52)
--- NOTE | 2021-01-22 08:20 | PROST_PTH ---
PATIENT: AIXA LOPEZ [place] [facility] [place][id number] AGE/SX: 70/M ROOM: RE01/21/[address]: Dr. Kris Kay MD : 1950 BED: DIS: 01/21/2021 SPEC #: [id number] RECD: 01/22/21 08:20 STATUS: LUBNA ARY #: [id number] MERRY: 01/22/21 08:[address]: Kris Kay DEPT: SURGICAL PATHOLOGY RECD BY: Maty Hoang ENTERED: 01/22/21 08:36 SP TYPE: PROSTATE OTHR DR: Dr. Vivek Posadas MD Tissues: A - Prostate, NOS B - Adipose tissue C - Lymph node, NOS D - Lymph node, NOS E - Urethra, NOS Procedures: Surgery Specimen Level IV Surgery Specimen Level V Surgery Specimen Level HEADER OPERATION: Lap robotic radical prostatectomy PRE-OP DIAGNOSIS: Malignant neoplasm of prostate; nodular prostate TISSUE SUBMITTED: A - Prostate, B - Fat over prostate, C - Right pelvic lymph node, D - Left pelvic lymph node, E - Urethral margin MICROSCOPIC DIAGNOSIS A. Prostate, radical prostatectomy: Prostatic adenocarcinoma. See cancer summary in the comment section. B. Fat over prostate: Negative for carcinoma. C. Right pelvic lymph nodes, biopsy: Seven out of seven lymph nodes, negative for metastatic carcinoma. D. Left pelvic lymph node, biopsy: Mature adipose tissue, negative for carcinoma. No lymph node tissue is identified. E. Urethral margin, biopsy: Negative for carcinoma. SJ:samantha 01/26/2021 COMMENT A. PROSTATE CANCER (RADICAL) SUMMARY: Procedure: Radical Prostatectomy Prostate Size: Weight: 51 gm Size: 4 cm transversely, 3.5 cm anterior-posteriorly and 4 cm craniocaudally Histologic type: Acinar adenocarcinoma Histologic grade: Grade group 3 (Jaclyn score 4+3=7) Tertiary pattern: Crossroads grade 5 Tumor Quantitation (estimated % of the prostate involved by tumor): ~20% Tumor site: Tumor predominantly involves right lobe in apical, middle and distal portion of prostate and approximately measures 2.5 x 1.9 x 1 cm. Tumor in the left lobes involves focal area of apical, mid and basal portion of the prostate and measures approximately 1.6 x 0.4 x 0.6 cm in discontinuous manner. Extraprostatic Extension: Pesent, focal Location of extraprostatic extension: Right lobe, posterior Urinary Bladder Neck Invasion: Not identified Seminal Vesicle Invasion: Not identified Lymphvascular Invasion: Not identified Perineural Invasion: Present, focal Margins: Margins uninvolved by invasive carcinoma. Treatment Effect: No known presurgical therapy. Regional Lymph Nodes: Number of lymph nodes involved: 0 Number of lymph nodes examined: 7 Additional Pathologic Findings: - Focal high-grade prostatic intraepithelial neoplasia (HGPIN). - Benign prostatic hyperplasia, glandular and stromal type. - Chronic inflammation. Ancillary studies: Not performed PATHOLOGIC STAGE: pT3a pN0 pMx The above summary is in compliance with [employer] (CAP) Cancer Protocols Checklist and [place] Joint Committee on Cancer (AJCC), Staging Manual, 8th Ed. Please make reference to previous specimen ([id number]) right prostate, apex, mid and base and left prostate, base, core biopsies with diagnosis of adenocarcinoma. Case has been reviewed in consultation with Dr. Hernandez who concurs with the above diagnosis. IDC:[email or web address] MICROSCOPIC DESCRIPTION Slides are reviewed. GROSS DESCRIPTION A - Received in fixative is one container labeled with the patient's name and designated prostate. The specimen consists of a radical prostatectomy specimen consisting of prostate and bilateral seminal vesicles and vas deferens. The entire specimen weighs 51 gm. The prostate measures 4 cm transversely, 3.5 cm anterior-posteriorly and 4 cm craniocaudally. The right seminal vesicle measures 3 x 1.5 x 0.8 cm and right vas deferens measures 3 cm in length and 0.5 cm in diameter. The left seminal vesicle measures 3 x 1.5 x 1.5 cm and the left vas deferens measures 4 cm in length and 0.5 cm in diameter. The prostate is inked as follows: anterior - yellow, posterior - black, right lateral - blue, left lateral - green. The bilateral seminal vesicles and vas deferens are inked as follows: posterior surface - black, anterior surface right seminal vesicle and vas deferens - blue and anterior surface left seminal vesicle and vas deferens - green. Sections of prostate do not reveal any obvious mass lesion. Sock Drier sections are submitted in 20 cassettes as follows: 1 - right seminal vesicle and vas deferens, 2 - left seminal vesicle and vas deferens, 3 - apical/urethral margin prostate, enface, 4 & 5 - basal portion of prostate margin, enface, 6-10 - apical portion prostate, 11-14 - middle portion prostate, 15-20 - basal portion prostate. Sections will be submitted after additional fixation. B - Received in fixative is one container labeled with the patient's name and designated fat over prostate. The specimen consists of a piece of adipose tissue measuring 2.5 x 2.5 x 1 cm. No mass lesion is identified. Sock Drier tissue is submitted in one cassette. C - Received in fixative is one container labeled with the patient's name and designated right pelvic lymph node. The specimen consists of an irregular piece of yellow adipose tissue measuring 4 x 2.5 x 0.5 cm. Four nodules consistent with lymph nodes are identified measuring 0.5 to 0.7 cm in greatest dimension. The entire specimen is submitted in two cassettes as follows: 1 - four nodules consistent with lymph nodes, 2 - rest of the specimen. D - Received in fixative is one container labeled with the patient's name and designated left pelvic lymph node. The specimen consists of a piece of adipose tissue. No obvious lymph node is identified. The entire specimen is submitted in one cassette. E - Received in fixative is one container labeled with the patient's name and designated urethral margin. The specimen consists of two pieces of pink, congested soft tissue measuring in aggregate 0.8 x 0.7 x 0.2 cm. The entire specimen is submitted in one cassette. / SJ:rg 01/22/21 TC:0 CPT: 50320, 65710 x3, [id number]
== END 2021-01-21 19:35 | disposition home or self-care (01) ==
LOC: SDC 10:04 → AC 10:04
PROVIDERS: Anesthesiology; PCP Family Medicine; Referring Provider Urology; Visit Provider Urology
PROC: 0VT04ZZ Resection of Prostate, Percutaneous Endoscopic Approach (ICD-10-PCS; CPT 55866; principal; 2021-01-21 11:55)
DX: C61 Malignant neoplasm of prostate (principal); N40.2 Nodular prostate without lower urinary tract symptoms; I25.10 Atherosclerotic heart disease of native coronary artery without angina pectoris; J45.20 Mild intermittent asthma, uncomplicated; Z79.82 Long term (current) use of aspirin; Z79.899 Other long term (current) drug therapy
CPT/HCPCS: 00865; 38571; 55866; S2900; 36415; 80048; 85027; 86850; 86900; 86901; 88305; 88307; 88309; 93005; J7120; J0744; J2405

== ENCOUNTER 2021-05-01 11:28 | Outpatient (CLI) | payer MEDICARE, OTHER, SELFPAY ==
[2021-05-01 12:57] LABS: PSA,Total- Diagnostic < 0.01 ng/mL (0.0-4.0)
== END 2021-05-01 23:59 | disposition short-term general hospital (02) ==
LOC: LAB 11:30
PROVIDERS: PCP Family Medicine; Visit Provider Urology
DX: Z48.816 Encounter for surgical aftercare following surgery on the genitourinary system (principal); C61 Malignant neoplasm of prostate
CPT/HCPCS: 36415; 84153

== ENCOUNTER 2021-07-13 11:41 | Outpatient (CLI) | payer MEDICARE, OTHER, SELFPAY ==
[2021-07-13 12:47] LABS: AST(SGOT) 18 U/L (15-37); Alanine Aminotransfer ALT/SGPT 20 U/L (16-61); Albumin, Serum 3.4 g/dL (3.2-5.0); Alkaline Phosphatase 74 U/L (45-117); Bilirubin, Direct 0.16 mg/dL (0.00-0.30); Cholesterol 124 mg/dL (200); Globulin 3.9 g/dL (2.2-4.2); High Density Lipoprotein 59 mg/dL; Protein, Total 7.3 g/dL (6.4-8.2); Triglycerides 60 mg/dL; Very Low Density Lipoprotein 12 mg/dL (5-40)
== END 2021-07-13 23:59 | disposition home or self-care (01) ==
LOC: LAB 11:43
PROVIDERS: PCP Family Medicine; Visit Provider Nurse Practitioner Family
DX: I25.10 Atherosclerotic heart disease of native coronary artery without angina pectoris (principal); I45.10 Unspecified right bundle-branch block; E78.5 Hyperlipidemia, unspecified
CPT/HCPCS: 36415; 80061; 80076

== ENCOUNTER → 2021-09-04 | Outpatient (CLI) | payer MEDICARE, OTHER, SELFPAY ==
[2021-09-04 17:24] LABS: PSA,Total- Diagnostic < 0.01 ng/mL (0.0-4.0)
== END | disposition home or self-care (01) ==
LOC: LAB 15:34
PROVIDERS: PCP Family Medicine; Visit Provider Urology
DX: C61 Malignant neoplasm of prostate (principal)
CPT/HCPCS: 36415; 84153

== ENCOUNTER → 2021-10-07 | Outpatient (CLI) | payer MEDICARE, OTHER, SELFPAY ==
--- NOTE | 2021-10-07 08:59 | ECHOD_ITS ---
Reason For Study: PFO Procedure This was a 2D Doppler, Color Flow transthoracic echocardiogram. The study was technically difficult. Contrast injection was performed. Exam performed in department. Left Ventricle Normal LV size. Left ventricular systolic function is normal. The estimated ejection fraction is 60 %. No regional wall motion abnormalities noted. Right Ventricle Normal RV size. Normal systolic function. Atria The left atrium is mildly enlarged. Normal right atrium. Mitral Valve Normal mitral valve. Tricuspid Valve Normal tricuspid valve. Mild (1+) tricuspid valve insufficiency. Pulmonary artery systolic pressure is 30 mmHg. Aortic Valve Normal aortic valve. Pulmonic Valve Normal pulmonic valve. Great Vessels Normal aortic root. The pulmonary artery is normal size. Normal inferior vena cava. Pericardium/Pleural No pericardial effusion. MMode/2D Measurements & Calculations RVDd: 3.4 cm Ao root diam: 3.2 cm LAV(MOD-sp4): 61.2 ml LVAd ap4: 40.6 cm2 SV(MOD-sp4): 100.8 ml SV(sp4-el): 100.3 ml LVLd ap4: 8.6 cm EDV(MOD-sp4): 161.8 ml EDV(sp4-el): 163.4 ml LVAs ap4: 23.9 cm2 LVLs ap4: 7.7 cm ESV(MOD-sp4): 61.1 ml ESV(sp4-el): 63.1 ml EF(MOD-sp4): 62.3 % EF(sp4-el): 61.4 % LA A4 area: 21.3 cm2 LA dimension(2D): 4.2 cm RA A4 area: 16.3 cm2 Doppler Measurements & Calculations MV E max isidro: 96.1 cm/sec Lat Peak E' Isidro: 12.7 cm/sec Med Peak E' Isidro: 9.0 cm/sec MV A max isidro: 83.7 cm/sec E/E' lat: 7.6 E/E' med: 10.7 MV E/A: 1.1 Ao V2 max: 153.1 cm/sec LV V1 max: 110.2 cm/sec PA V2 max: 123.3 cm/sec Ao max P.4 mmHg LV V1 max P.9 mmHg TR max isidro: 253.1 cm/sec TR max P.6 mmHg ECHO/Echo Complete W/ Contrast Interpretation Summary Normal LV size. Left ventricular systolic function is normal. The estimated ejection fraction is 60 %. Pulmonary artery systolic pressure is 30 mmHg. The left atrium is mildly enlarged. Contrast injection was performed. Ordering Physician: Dave Vogt Referring Physician: Dave Vogt Performed By: Naye Maddox RCS
== END | disposition home or self-care (01) ==
LOC: CVS 08:59
PROVIDERS: PCP Family Medicine; Referring Provider Internal Medicine Cardiovascular Disease; Visit Provider Internal Medicine Cardiovascular Disease
DX: I25.10 Atherosclerotic heart disease of native coronary artery without angina pectoris (principal); I25.2 Old myocardial infarction
CPT/HCPCS: 93306; Q9957; A4216; C8929

== ENCOUNTER → 2022-02-23 | Outpatient (CLI) | payer MEDICARE, OTHER, SELFPAY ==
[2022-02-23 12:20] LABS: AST(SGOT) 20 U/L (15-37); Alanine Aminotransfer ALT/SGPT 21 U/L (16-61); Albumin, Serum 3.6 g/dL (3.2-5.0); Alkaline Phosphatase 82 U/L (45-117); Bilirubin, Direct 0.22 mg/dL (0.00-0.30); Cholesterol 133 mg/dL (200); High Density Lipoprotein 66 mg/dL; PSA,Total- Diagnostic < 0.01 ng/mL (0.0-4.0); Protein, Total 7.6 g/dL (6.4-8.2); Triglycerides 57 mg/dL; Very Low Density Lipoprotein 11 mg/dL (5-40)
== END | disposition home or self-care (01) ==
LOC: LAB 11:02
PROVIDERS: PCP Family Medicine; Referring Provider Nurse Practitioner Family; Visit Provider Nurse Practitioner Family
DX: C61 Malignant neoplasm of prostate (principal); E78.00 Pure hypercholesterolemia, unspecified
CPT/HCPCS: 36415; 80061; 80076; 84153

== ENCOUNTER → 2022-08-27 | Outpatient (CLI) | payer MEDICARE, OTHER, SELFPAY ==
[2022-08-27 11:37] LABS: PSA,Total- Diagnostic < 0.01 ng/mL (0.0-4.0)
[2022-08-27 11:44] LABS: AST(SGOT) 23 U/L (15-37); Alanine Aminotransfer ALT/SGPT 27 U/L (16-61); Albumin, Serum 3.7 g/dL (3.2-5.0); Alkaline Phosphatase 70 U/L (45-117); Bilirubin, Direct 0.23 mg/dL (0.00-0.30); Cholesterol 130 mg/dL (200); High Density Lipoprotein 71 mg/dL; Protein, Total 7.7 g/dL (6.4-8.2); Triglycerides 30 mg/dL; Very Low Density Lipoprotein 6 mg/dL (5-40)
== END | disposition home or self-care (01) ==
LOC: LAB 09:56
PROVIDERS: Internal Medicine Cardiovascular Disease; PCP Family Medicine; Referring Provider Urology; Visit Provider Urology
DX: C61 Malignant neoplasm of prostate (principal); E78.00 Pure hypercholesterolemia, unspecified
CPT/HCPCS: 36415; 80061; 80076; 84153

== ENCOUNTER → 2023-02-25 | Outpatient (CLI) | payer MEDICARE, OTHER, SELFPAY ==
[2023-02-25 15:54] LABS: PSA,Total- Diagnostic < 0.01 ng/mL (0.0-4.0)
== END | disposition home or self-care (01) ==
LOC: LAB 14:27
PROVIDERS: PCP Family Medicine; Referring Provider Urology; Visit Provider Urology
DX: C61 Malignant neoplasm of prostate (principal)
CPT/HCPCS: 36415; 84153

== ENCOUNTER → 2023-05-26 | Outpatient (CLI) | payer MEDICARE, OTHER, SELFPAY ==
[2023-05-26 13:39] LABS: Absolute Lymphocyte Count 1.66 X10^3/uL (0.83-4.51); Absolute Neutrophil Count 3.1 X10^3/uL (2.0-7.7); Basophil# 0.06 X10^3/uL; Basophil% 1.1 % (0-1); Eosinophil# 0.25 X10^3/uL; Eosinophils% 4.4 % (0-5); Hematocrit 44.7 % (40-54); Lymphocyte # 1.66 X10^3/ul (0.83-4.51); Lymphocyte % 29.1 % (19-41); Mean Corp Hgb Conc 33.6 g/dL (32-36); Mean Corpuscular Hgb 30.7 pg (27.0-32.0); Mean Corpuscular Volume 91.4 fL (80-94); Mean Platelet Vol. 10.3 fl (6.2-12.0); Monocyte% 10.5 % (0-10); NRBC Flagged by Analyzer 0 % (0-5); Neutrophil # 3.13 X10^3/uL (2.7-7.7); Neutrophil % 54.7 % (47-70); Platelet Count 274 K/mm3 (150-450); RBC Distribution Width CV 13.4 % (11.6-14.6); RBC Distribution Width SD 45.2 fl (35.1-43.9); Red Blood Count 4.89 M/mm3 (4.6-6.2); White Blood Count 5.7 K/mm3 (4.4-11.0)
[2023-05-26 14:01] LABS: Albumin, Serum 3.7 g/dL (3.2-5.0); Anion Gap 3 (5-15); BUN 17 mg/dL (7-18); BUN/Creat Ratio 18.5 RATIO (10-20); Calcium,Total 9.2 mg/dL (8.5-10.1); Chloride 108 mmol/L (98-107); Creatinine, Serum 0.92 mg/dL (0.70-1.30); EST Glomerular Filtration Rate 86 mL/min (>60); Est Glom Filt Rate - Afr Amer 104 mL/min (>60); Glucose 87 mg/dL (74-106); Potassium 3.9 mmol/L (3.5-5.1); Sodium Level 136 mmol/L (136-145)
--- OUTSIDE RECORDS SUMMARY | 2023-05-26 14:53 | XMS RPT_ITS | CCD ---
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 Name Role Phone MD Sin, Dave Barnes Unavailable Marie RICH, Ebony Russell Unavailable Unavailable Bolivar Tyson Unavailable Unavailable Estefani SINGER, Derrell Russell Unavailable Allergies Allergy Classification Reported Allergen(s) Allergy Type Date of Onset Reaction(s) Facility (3 sources) omeprazole drug allergy 12-08-2015 DIarrhea [facility] Work Phone: (7 sources) penicillin; 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: [PENICILLIN] drug allergy 12-08-2015 airway swelling, had a a child, unknown [facility] Work Phone: Medications Completed/Discontinued Medications Medication Drug Class(es) Dates Sig (Normalized) Sig (Original) aspirin 325 mg oral tablet (7 sources) Nonsteroidal Anti-inflammatory Drug Start: 12-08-2015 take 1 tablet by mouth once daily ASPIRIN 325 MG TABS One tablet by mouth daily ASPIRIN [id number] Ebony Salazar RN Problems Active Problems Problem Classification Problem Date Documented Date Episodic/Chronic Acute myocardial infarction (3 sources) Acute subendocardial infarction; 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: [Non-ST elevation (NSTEMI) myocardial infarction] Onset: 12-08-2015 12-08-2015 Chronic Cardiac and circulatory congenital anomalies (3 sources) Patent foramen ovale; 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: [Atrial septal defect] Onset: 12-09-2015 12-09-2015 Chronic Cardiac dysrhythmias (3 sources) Bradycardia, unspecified; 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: [Bradycardia, unspecified] Onset: 12-05-2015 12-05-2015 Chronic Conduction disorders (3 sources) Right bundle branch block; 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: [Unspecified right bundle-branch block] Onset: 12-08-2015 12-08-2015 Chronic Coronary atherosclerosis and other heart disease (6 sources) Old myocardial infarction; 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: [Atherosclerotic heart disease of [place] coronary artery without angina pectoris] Onset: 12-08-2015 03-25-2016 Chronic Disorders of lipid metabolism (3 sources) Hyperlipidemia; 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: [Hyperlipidemia, unspecified] Onset: 12-08-2015 12-08-2015 Chronic Heart valve disorders (3 sources) Non-rheumatic mitral regurgitation ; 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: [Nonrheumatic mitral (valve) insufficiency] Onset: 12-09-2015 12-09-2015 Chronic Other connective tissue disease (1 source) Muscle weakness of upper limb; 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: [Other symptoms and signs involving the musculoskeletal system] Onset: 08-07-2021 08-07-2021 Episodic Other nervous system disorders (1 source) Paresthesia; 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: [Paresthesia of skin] Onset: 08-07-2021 08-07-2021 Episodic Unclassified (1 source) Long-term drug therapy; 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: [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] Onset: 12-08-2015 12-08-2015 Past or Other Problems Problem Classification Problem Date Documented Da te Episodic/Chronic Conditions associated with dizziness or vertigo (3 sources) Dizziness; 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: [Dizziness and giddiness] Onset: 12-05-2015 12-05-2015 Episodic Other aftercare (2 sources) Other custodial (current) drug therapy; 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: [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] Onset: 12-08-2015 12-08-2015 Episodic Unclassified (1 source) Problem Results Test Name Value Interpretation Reference Range Facil ity Vital Signs Date Time Vital Sign Value Performing Clinician Facility 03-26-2016 08:43-0500 BMI (Body Mass Index) 31.47 kg/m2 MD [facility] Work Phone: 03-26-2016 08:43-0500 BP Diastolic 60 mm[Hg] MD [facility] Work Phone: 03-26-2016 08:43-0500 BP Systolic 112 mm[Hg] MD [facility] Work Phone: 03-26-2016 08:43-0500 BSA (Body Surface Area) 2.08 m2 Dave Vogt MD [facility] Work Phone: 03-26-2016 08:43-0500 Height 172.72 cm Dave Vogt MD [facility] Work Phone: 03-26-2016 08:43-0500 Pulse (Heart Rate) 66 /min Dave Vogt MD [facility] Work Phone: 03-26-2016 08:43-0500 Respiratory Rate 18 /min Dave Vogt MD [facility] Work Phone: 03-26-2016 08:43-0500 Weight 93.9 kg Dave Vogt MD [facility] Work Phone: 12-10-2015 15:56-0400 Heart rate 59 /min Harumi Marbella [facility] Work Phone: NEGATED: Highlighted [id number] 11:12-0400 Body height [address] [facility] Work Phone: NEGATED: Highlighted [id number] 11:12-0400 Body height 172.[address] [facility] Work Phone: NEGATED: Highlighted [id number] 11:12-0400 Body mass index (BMI) [Ratio] 31.74 kg/m2 [facility] Work Phone: NEGATED: Highlighted [id number] 11:12-0400 Body weight [address] [facility] Work Phone: NEGATED: Highlighted [id number] 11:12-0400 Body weight 94.35 [facility] Work [facility]: Procedures Date Procedure Procedure Detail Performing Clinician Start: 08-07-2021 End: 08-07-2021 BP scrn no perf at interval Derrell Jara MD Work Phone: Start: 08-07-2021 End: 08-07-2021 Calc BMI abv up anh f/u Derrell berrios MD Work Phone: Start: 08-07-2021 End: 08-07-2021 Current tobacco non-user cad cap copd pv dm Derrell Jara MD Work Phone: Start: 08-07-2021 End: 08-07-2021 Docrev cur meds by elig clin Derrell Jara MD Work Phone: Start: 08-07-2021 End: 08-07-2021 Pain doc pos and plan Derrell Jara MD Work Phone: Start: 08-07-2021 End: 08-07-2021 Patient encounter procedure Derrell Jara MD Work Phone: Start: 04-11-2017 End: 04-12-2017 *Hepatic Function Panel Shila Paulson Start: 04-11-2017 End: 04-12-2017 Lipid panel [AGGREGATE] Shila Paulson Start: 09-24-2016 End: 10-08-2016 *Hepatic Function Panel Shila Paulson Start: 09-24-2016 End: 10-08-2016 Lipid panel [AGGREGATE] Shila Paulson Start: 03-26-2016 End: 03-26-2016 Dietary management education, guidance, and counseling Bolivar Tyson Start: 03-26-2016 End: 03-26-2016 *Hepatic Function Panel Shila Paulson Start: 03-26-2016 End: 03-26-2016 WELDER/INSTALLER Dave Vogt MD Start: 03-26-2016 End: 03-26-2016 Follow Up Appt 1 year Dave Vogt MD Start: 03-26-2016 End: 03-26-2016 Lipid panel [AGGREGATE] Shila Paulson Start: 12-10-2015 End: 03-08-2016 Echocardiography Dave Vogt MD NEGATED: Highlighted rowStart: 08-07-2021 End: 08-07-2021 Documentation of current medications Linda Ferguson LPN Plan of Treatment Date Care Activity Detail Author Start: 08-07-2021 End: 08-07-2021 Patient encounter procedure Appointment [facility] Work Phone: Start: 08-07-2021 End: 08-07-2021 EMG/NCT right upper extremity EMG/NCT right upper extremity [facility] Work Phone: Start: 08-07-2021 End: 08-07-2021 Mri any jt upper extremity w/o contrast matrl MRI right shoulder without contrast [facility] Work Phone: Start: 08-07-2021 End: 08-07-2021 Radex shoulder complete minimum 2 views XR SHOULDER 4 VWS-RT [facility] Work Phone: Start: 04-11-2017 End: 04-12-2017 *Hepatic Function Panel *Hepatic Function Panel [facility] Work Phone: Start: 04-11-2017 End: 04-12-2017 Lipid panel [AGGREGATE] *Lipid Profile CC PCP [facility] Work Phone: Start: 03-31-2017 End: 03-31-2017 Appointment Appointment [facility] Work Phone: Start: 09-24-2016 End: 10-08-2016 *Hepatic Function Panel *Hepatic Function Panel [facility] Work Phone: Start: 09-24-2016 End: 10-08-2016 Lipid panel [AGGREGATE] *Lipid Profile CC PCP [facility] Work Phone: Start: 03-26-2016 End: 03-26-2016 *Hepatic Function Panel *Hepatic Function Panel [facility] Work Phone: Start: 03-26-2016 End: 03-26-2016 WELDER/INSTALLER WELDER/INSTALLER [facility] Work Phone: Start: 03-26-2016 End: 03-26-2016 Follow Up Appt 1 year Follow Up Appt 1 year [facility] Work Phone: Start: 03-26-2016 End: 03-26-2016 Lipid panel [AGGREGATE] *Lipid Profile CC PCP [facility] Work Phone: Start: 12-10-2015 End: 12-10-2015 WELDER/INSTALLER WELDER/INSTALLER [facility] Work Phone: Start: 12-10-2015 End: 12-10-2015 Echocardiography Echocardiogram (complete) [facility] Work Phone: Start: 12-10-2015 End: 12-10-2015 Electrocardiogram, complete EKG (In office) [facility] Work Phone: Start: 12-10-2015 End: 12-10-2015 Follow Up Appt 3 months Follow Up Appt 3 months [facility] Work Phone: Patient Education [facility] Work Phone: Social History Date Type Detail Facility Start: 08-07-2021 End: 08-07-2021 Assertion Unknown if ever smoked [facility] Work Phone: Evaluation note Note Date & Type Note Facility Evaluation note There may be informa tion available, but it has not been provided by the sender. [facility] Work Phone: Instructions Note Date & Type Note Facility [facility] Work Phone: Chief Complaint Chief Complaint Description Start Date right shoulder pain Preliminary chief co mplaint data, not yet signed by the author as of Advance Directives There may be information available, but it has not been provided by the sender. Family History There may be information available, but it has not been provided by the sender. Additional Source Comments Reason for Visit (unrecogniz ed section and content) FOR RECORDS PERTAINING TO PATIENTS WHO ARE OR HAVE BEEN ENROLLED IN A CHEMICAL DEPENDENCY/SUBSTANCEABUSE PROGRAM, SOME INFORMATION MAY BE OMITTED. This clinical summary was aggregated from multiple sources. Caution should be exercised in using it in the provision of clinical care. This summary normalizes information from multiple sources, and as a consequence, information in this document may materially change the coding, format and clinical context of patient data. In addition, data may be omitted in some cases. CLINICAL DECISIONS SHOULD BE BASED ON THE PRIMARY CLINICAL RECORDS. [employer] [facility]. provides no warranty or guarantee of the accuracy or completeness of information in this document.
== END | disposition home or self-care (01) ==
LOC: PSN 12:50
PROVIDERS: PCP Family Medicine; Referring Provider Specialist; Visit Provider Specialist
DX: Z01.818 Encounter for other preprocedural examination (principal); Z01.810 Encounter for preprocedural cardiovascular examination; M16.12 Unilateral primary osteoarthritis, left hip; E78.00 Pure hypercholesterolemia, unspecified
CPT/HCPCS: 36415; 80048; 82040; 85025; 93005

== ENCOUNTER → 2023-08-26 | Outpatient (CLI) | payer MEDICARE, OTHER, SELFPAY ==
[2023-08-26 16:15] LABS: PSA,Total- Diagnostic < 0.01 ng/mL (0.0-4.0)
== END | disposition home or self-care (01) ==
LOC: LAB 15:03
PROVIDERS: PCP Family Medicine; Referring Provider Nurse Practitioner; Visit Provider Nurse Practitioner
DX: C61 Malignant neoplasm of prostate (principal)
CPT/HCPCS: 36415; 84153

== ENCOUNTER → 2024-03-06 | Outpatient (CLI) | payer MEDICARE, OTHER, SELFPAY ==
[2024-03-06 15:19] LABS: PSA,Total- Diagnostic 0.01 ng/mL (0.0-4.0)
== END | disposition home or self-care (01) ==
LOC: LAB 13:59
PROVIDERS: PCP Family Medicine; Referring Provider Nurse Practitioner; Visit Provider Nurse Practitioner
DX: C61 Malignant neoplasm of prostate (principal)
CPT/HCPCS: 36415; 84153

== ENCOUNTER → 2024-08-30 | Outpatient (CLI) | payer MEDICARE, OTHER, SELFPAY ==
[2024-08-30 13:26] LABS: PSA,Total- Diagnostic 0.03 ng/mL (0.00-4.00)
[2024-09-04 05:07] LABS: Alternaria tenuis <0.10 kU/L (Class 0); Ash, White <0.10 kU/L (Class 0); Aspergillus fumigatus <0.10 kU/L (Class 0); Bermuda Grass <0.10 kU/L (Class 0); Birch <0.10 kU/L (Class 0); Black Walnut <0.10 kU/L (Class 0); Cat Hair / Dander,Stand <0.10 kU/L (Class 0); Cedar, Mountain <0.10 kU/L (Class 0); Cladosporium herbarum <0.10 kU/L (Class 0); Cockroach, American <0.10 kU/L (Class 0); Cottonwood <0.10 kU/L (Class 0); D farinae Mite <0.10 kU/L (Class 0); D pteronyssinus <0.10 kU/L (Class 0); Dog Epithelia <0.10 kU/L (Class 0); Elm, American White <0.10 kU/L (Class 0); Immunoglobulin E 20 IU/mL (6-495); Maple/Box Elder <0.10 kU/L (Class 0); Mouse Urine <0.10 kU/L (Class 0); Mulberry, White <0.10 kU/L (Class 0); Oak, White <0.10 kU/L (Class 0); Pecan <0.10 kU/L (Class 0); Penicillium Notatum <0.10 kU/L (Class 0); Pigweed, Rough <0.10 kU/L (Class 0); Ragweed, Short/Common <0.10 kU/L (Class 0); Russian Thistle <0.10 kU/L (Class 0); Sheep Sorrel <0.10 kU/L (Class 0); Sycamore, American <0.10 kU/L (Class 0); Timothy Grass <0.10 kU/L (Class 0)
== END | disposition home or self-care (01) ==
LOC: LAB 12:08
PROVIDERS: PCP Family Medicine; Referring Provider Internal Medicine Pulmonary Disease; Visit Provider Internal Medicine Pulmonary Disease
DX: J45.909 Unspecified asthma, uncomplicated (principal); C61 Malignant neoplasm of prostate
CPT/HCPCS: 36415; 82785; 84153; 86003

== ENCOUNTER → 2024-11-29 | Outpatient (CLI) | payer MEDICARE, OTHER, SELFPAY ==
[2024-11-29 12:12] LABS: AST(SGOT) 28 U/L (<=37); Alanine Aminotransfer ALT/SGPT 20 U/L (<=46); Albumin, Serum 4.1 g/dL (3.4-4.8); Alkaline Phosphatase 64 U/L (40-129); Bilirubin, Direct 0.32 mg/dL (0.00-0.30); Cholesterol 131 mg/dL (<=200); Globulin 2.9 g/dL (2.2-4.2); Low Density Lipoprotein Calc. 53 mg/dL; Triglycerides 47 mg/dL; Very Low Density Lipoprotein 9 mg/dL (5-40); cholesterol:hdl ratio screen 1.89
== END | disposition home or self-care (01) ==
LOC: LAB 08:49
PROVIDERS: PCP Family Medicine; Referring Provider Nurse Practitioner Gerontology; Visit Provider Nurse Practitioner Gerontology
DX: E78.5 Hyperlipidemia, unspecified (principal)
CPT/HCPCS: 36415; 80061; 80076

== ENCOUNTER → 2025-03-25 | Outpatient (CLI) | payer MEDICARE, OTHER, SELFPAY ==
[2025-03-25 12:25] LABS: PSA,Total- Diagnostic 0.04 ng/mL (0.00-4.00)
== END | disposition home or self-care (01) ==
LOC: LAB 10:54
PROVIDERS: PCP Family Medicine; Referring Provider Urology; Visit Provider Urology
DX: C61 Malignant neoplasm of prostate (principal)
CPT/HCPCS: 36415; 84153